=== PATIENT | female | born 1965 | race Caucasian/White ===

== ENCOUNTER → 2017-04-26 | Outpatient (CLI) | payer MEDICARE, BC | END | disposition home or self-care (01) | LOC: LABWHC1 10:10 | PROVIDERS: ATTEND Psychiatry & Neurology Neurology | DX: G35 Multiple sclerosis (principal) | CPT/HCPCS: 36415; 86480 ==

== ENCOUNTER → 2018-03-07 | Outpatient (CLI) | payer MEDICARE, BC ==
--- NOTE | 2018-03-07 09:05 | CT ---
EXAMINATION TYPE: CT urogram wo/w con DATE OF EXAM: 03/07/2018 COMPARISON: HISTORY: Microscopic hematuria, UTI CT DLP: 832.5 mGycm CONTRAST: Performed and without and with IV Contrast, patient injected with 100 mL of Isovue 300. CT Urography was performed with unenhanced followed by enhanced images of the kidneys, ureters and ur inary bladder. Delayed images were obtained. 3d reconstruction was perfromed at a separate work sta tion. FINDINGS: KIDNEYS/BLADDER: No hydronephrosis. No nephrolithiasis. No distinct renal mass. Mild wall thickeni ng anterior urinary bladder. LUNG BASES-: No visible nodule. No infiltrate. LIVER/GB: Cholecystectomy clips are in place. No space occupying hepatic lesion. Biliary tree is of n ormal caliber. PANCREAS: No inflammation. No distinct mass. SPLEEN: No splenic enlargement. No lesion seen. ADRENALS: No nodule. No thickening. BOWEL: Normal appendix. Normal bowel caliber. No inflammation. GENITAL ORGANS: No gross abnormality. LYMPH NODES: No greater than 1cm abdominal or pelvic lymph nodes are appreciated. AORTA: No significant abnormality. OSSEOUS STRUCTURES: No significant abnormality is seen. OTHER: No significant additional abnormality is seen. IMPRESSION: 1. Anterior urinary bladder wall thickening may reflect cystitis. Consider direct visualization if in dicated.
== END | disposition home or self-care (01) ==
LOC: RADCTMAIN 06:52
PROVIDERS: ATTEND Urology
DX: N32.89 Other specified disorders of bladder (principal); R31.21 Asymptomatic microscopic hematuria
CPT/HCPCS: 74178; 74400; Q9967

== ENCOUNTER → 2019-02-05 | Outpatient (CLI) | payer MEDICARE, BC ==
--- NOTE | 2019-02-05 08:33 | US ---
EXAMINATION TYPE: US abdomen complete DATE OF EXAM: 02/05/2019 COMPARISON: US CLINICAL HISTORY: R10.9 Abdominal Pain. Pt states epigastric pain, GB removed EXAM MEASUREMENTS: Liver Length: 12.6 cm CBD: 0.5 cm Spleen: 7.8 cm Right Kidney: 10.3 x 5.0 x 4.5 cm Left Kidney: 11.3 x 5.3 x 5.0 cm Pancreas: wnl, tail obscured by overlying bowel gas Liver: wnl Gallbladder: Surgically absent Evidence for sonographic Driscoll's sign: No CBD: wnl Spleen: wnl Right Kidney: ?Cortical thinning Left Kidney: wnl Upper IVC: wnl Abd Aorta: wnl, proximal portion gassed out IMPRESSION: 1. Postcholecystectomy
== END | disposition home or self-care (01) ==
LOC: RADUSWWP 07:51
PROVIDERS: ATTEND Family Medicine
DX: R10.9 Unspecified abdominal pain (principal); Z90.49 Acquired absence of other specified parts of digestive tract
CPT/HCPCS: 76700

== ENCOUNTER → 2019-06-30 | Outpatient (CLI) | payer MEDICARE, BC | END | disposition home or self-care (01) | LOC: LABWHC1 13:08 | PROVIDERS: ATTEND Psychiatry & Neurology Neurology | DX: D84.9 Immunodeficiency, unspecified (principal); Z79.899 Other long term (current) drug therapy | CPT/HCPCS: 36415; 83516 ==

== ENCOUNTER → 2020-02-04 | Outpatient (CLI) | payer MEDICARE, BC ==
--- NOTE | 2020-02-04 09:02 | US ---
EXAMINATION TYPE: US kidneys/renal and bladder DATE OF EXAM: 02/04/2020 COMPARISON: US 2019 CLINICAL HISTORY: R31.21 Asymptomatic microscopic hematuria. Microscopic hematuria, occasional lower back pain. EXAM MEASUREMENTS: Right Kidney: 10.0 x 4.9 x 4.4 cm Left Kidney: 10.5 x 5.0 x 5.2 cm Right Kidney: no hydronephrosis or masses seen Left Kidney: no hydronephrosis or masses seen Bladder: wnl Bilateral Jets seen: yes Urinary bladder is sonolucent. Posterior wall is normal. IMPRESSION: 1. Normal bilateral renal ultrasound
== END | disposition home or self-care (01) ==
LOC: RADUSWWP 07:46
PROVIDERS: ATTEND Urology
DX: R31.21 Asymptomatic microscopic hematuria (principal)
CPT/HCPCS: 76770

== ENCOUNTER → 2020-10-19 | Outpatient (CLI) | payer MEDICARE, BC ==
--- NOTE | 2020-10-19 18:43 | BD ---
EXAMINATION TYPE: Axial Bone Density DATE OF EXAM: 10/19/2020 COMPARISON: NONE CLINICAL HISTORY: Postmenopausal screening Height: 5 FT 2 IN Weight: 175 FRAX RISK QUESTIONS: Alcohol (3 or more units per day): NO Family History (Parent hip fracture): NO Glucocorticoids (More than 3mos): NO (Ex: prednisone, prednisolone, methylprednisolone, dexamethasone, and hydrocortisone). History of Fracture in Adulthood: NO Secondary Osteoporosis: 1. Type 1 Diabetes: NO 2. Hyperthyroidism: NO 3. Menopause before 45: YES 4. Malnutrition: NO 5. Chronic liver disease: NO Rheumatoid Arthritis: NO Current Tobacco Use: NO RISK FACTORS HISTORY OF: Family History of Osteoporosis: NO Active: YES Diet low in dairy products/other sources of calcium: NO Postmenopausal woman: PART HYST AROUND AGE 35 Take estrogen and/or progesterone medications: NONE Lost more than 2 inches in height since high school: NO Poor Health: PT HAS MS MEDICATIONS: Additional Medications: LEXAPRO, LISINOPRIL, Additional History: LETY CARPAL TUNNEL SURG APPROX 15 YEARS AGO EXAM MEASUREMENTS: Bone mineral densitometry was performed using the [employer] System. Bone mineral density as measured about the Lumbar spine is: ----- L1-L4(G/cm2): 1.271 T Score Values are as follows: ----- L2: 0.1 ----- L3: 1.1 ----- L4: 1.4 ----- L1-L4: 0.8 BASELINE Bone mineral density about the R hip (g/cm2): 0.829 Bone mineral density about the L hip (g/cm2): 0.928 T Score values are as follows: -----R Neck: -1.5 -----L Neck: -0.8 -----R Total: -0.7 -----L Total: 0.2 BASELINE IMPRESSION: Osteopenia (T Score between -2.5 and -1). There is slightly increased risk of fracture and the patient may be considered for treatment. Re-Screen 2-5 years. NOTE: T-SCORE=SD OF THE YOUNG ADULT MEAN.
--- NOTE | 2020-10-21 13:32 | MM ---
Reason for exam: screening (asymptomatic). Last mammogram was performed 9 years and 9 months ago. History: Family history of breast cancer in maternal aunt at age 40. Physical Findings: A clinical breast exam by your physician is recommended on an annual basis and results should be correlated with mammographic findings. MG 3D Screening Mammo W/Cad Bilateral CC and MLO view(s) were taken. Prior study comparison: January 08, 2011, CAD bilateral diagnostic mammogram. The breast tissue is heterogeneously dense. This may lower the sensitivity of mammography. There is no discrete abnormality. No significant changes when compared with prior studies. ASSESSMENT: Benign, BI-RAD 2 RECOMMENDATION: Routine screening mammogram of both breasts in 1 year.
== END | disposition home or self-care (01) ==
LOC: RADMAMWWP 08:00
PROVIDERS: ATTEND Family Medicine
DX: Z12.31 Encounter for screening mammogram for malignant neoplasm of breast (principal); Z78.0 Asymptomatic menopausal state; M85.80 Other specified disorders of bone density and structure, unspecified site
CPT/HCPCS: 77063; 77067; 77080

== ENCOUNTER 2020-11-02 07:28 | Day surgery (SDC) | payer MEDICARE, BC ==
[2020-10-31 14:31] VITALS: BMI 31.8
[~2020-11-02 07:28] MED LIST: LACTATED RINGERS 1,000 ML IV SCH; LIDOCAINE 1% (10MG/ML) FOR IV START INTRADERMA PRN
[2020-11-02 07:52] VITALS: RESP 16; TEMP 97
[2020-11-02] MEDS ORDERED: PROPOFOL 10 MG/ML 20 ML VIAL IV ONE (08:36)
--- NOTE | 2020-11-02 08:50 | P.PCN ---
Date of Procedure: 11/02/20 Procedure(s) Performed: BRIEF HISTORY: Patient is a 55-year-old pleasant female scheduled for an elective colonoscopy as a part of screening for colon cancer. PROCEDURE PERFORMED: Colonoscopy with snare polypectomy. PREOPERATIVE DIAGNOSIS: Screening for colon cancer. IV sedation per Anesthesia. PROCEDURE: After informed consent was obtained, the patient, was brought into the endoscopy unit. IV sedation was administered by Anesthesia under continuous monitoring. Digital rectal examination was normal. Initially the Olympus CF-160 flexible video colonoscope was then inserted in the rectum, gradually advanced into the cecum without any difficulty. Careful examination was performed as the scope was gradually being withdrawn. Ileocecal valve and the appendiceal orifice were visualized and appeared normal. Prep was excellent. Mucosa of the cecum, ascending colon, transverse colon, descending colon, appeared normal. The distal sigmoid colon there was a 1 cm polyp removed by snare polypectomy. Rest of the sigmoid colon, and rectum appeared normal. Retroflexion was performed in the rectum and 2 internal hemorrhoids were seen. The patient tolerated the procedure well. IMPRESSION: 1 cm distal sigmoid colon polyp status post polypectomy Small internal hemorrhoids RECOMMENDATIONS: Findings of this examination were discussed with the patient as well as her family. She was advised to follow with the biopsy results. If the biopsy shows an adenoma she can have a repeat colonoscopy in 3.
[2020-11-02 09:11] VITALS: BP 113/64; PULSE 76
== END 2020-11-02 09:48 | disposition home or self-care (01) ==
LOC: ORWHC2ENDO 07:28
PROVIDERS: ATTEND Internal Medicine Gastroenterology
DX: Z12.11 Encounter for screening for malignant neoplasm of colon (principal); D12.5 Benign neoplasm of sigmoid colon; K64.8 Other hemorrhoids
CPT/HCPCS: 88305; 45385; J2704

== ENCOUNTER → 2021-04-11 | Outpatient (CLI) | payer MEDICARE, BC ==
--- NOTE | 2021-04-11 11:48 | MM ---
Reason for exam: follow-up at short interval from prior study. Last mammogram was performed 6 months ago. History: Family history of breast cancer in maternal aunt at age 40. Physical Findings: Nurse did not find any significant physical abnormalities on exam. MG 3D Diag Mammo W/Cad RT CC and MLO view(s) were taken of the right breast. Prior study comparison: October 19, 2020, bilateral MG 3d screening mammo w/cad. The breast tissue is heterogeneously dense. This may lower the sensitivity of mammography. There is no discrete abnormality. Benign right axillary lymph nodes redemonstrated. These results were verbally communicated with the patient and result sheet given to the patient on 04/11/21. ASSESSMENT: Incomplete: need additional imaging evaluation, BI-RAD 0 RECOMMENDATION: Ultrasound of the right breast. (bloody nipple discharge)
--- NOTE | 2021-04-11 11:50 | USB ---
Reason for exam: additional evaluation requested from abnormal screening. History: Family history of breast cancer in maternal aunt at age 40. US Breast RT Right complete breast ultrasound includes all four quadrants, the retroareolar region and axilla. Finding demonstrates duct ectasia at the posterior nipple. These results were verbally communicated with the patient and result sheet given to the patient on 04/11/21. ASSESSMENT: Probably benign, BI-RAD 3 RECOMMENDATION: Surgical consultation of the right breast. Consider ductogram if spontaneous bloody nipple discharge persists. Manage patient on a clinical basis. Called Dr. Wolfe's office with mammographic findings and has scheduled an appointment for the patient for 05/19/21 at 10:[address] Haddad. PRELIMINARY REPORT CALLED AND FAXED TO DR. HADDAD ON 04/11/21. [facility]
== END | disposition home or self-care (01) ==
LOC: RADMAMWWP 06:55
PROVIDERS: ATTEND Family Medicine
DX: R92.2 Inconclusive mammogram (principal); N60.41 Mammary duct ectasia of right breast; Z80.3 Family history of malignant neoplasm of breast
CPT/HCPCS: 77065; 76641; G0279; 77061

== ENCOUNTER → 2021-05-19 | Outpatient (CLI) | payer MEDICARE, BC ==
[2021-05-19 10:32] VITALS: BP 131/79; PULSE 64; RESP 16; TEMP 98.3
--- NOTE | 2021-05-19 11:25 | P.GSHP ---
History of Present Illness H&P Date: 05/19/21 Chief Complaint: Bloody nipple discharge right breast Lilia is a 56-year-old white female who was seen in consultation for Dr. Wolfe regarding bloody nipple discharge from her right breast. She underwent a bilateral mammogram on 220 421 which was benign BIRADS 2. She then underwent a right breast mammogram [place] [id number] which did not show any discrete abnormality. This was followed by an ultrasound which revealed some duct ectasia. This has been for about 6 weeks. It appears to be from an isolated area. She notes the blood in her bra. It is spontaneous. She does have anything like that on the left side. She has intermittent burning sensation in the right breast. She has no history of any recent trauma or infection in the breast. She has never had any surgery on her breast. Caffeine:1 pop/day nicotine: none chocolate: occasional Family History: maternal aunt: breast mother: colon pre-cancer maternal aunt: thyroid cancer Hormonal History: menarche: 10 , age at first : 24, breast fed: yes menopause: hysterectomy at 34, left ovaries not for cancer BCP: about 3 years hormones: none Surgical History: Hysterectomy Right knee surgery 4 surgeries carpel tunnel gallbaldder D&C laproscopic exam Medical History: Multiple Sclerosis (treatment with lemtrada to wipe out immune system; through Dr. Austin office in remission) HTN Social History: smoke: stopped 40 years ago alcohol: seldom drugs: none - Constitutional Constitutional: Reports sweats - EENT Eyes: denies blurred vision, denies pain Ears: deny: decreased hearing, tinnitus Ears, nose, mouth and throat: Denies headache, Denies sore throat - Breasts Breasts: bilateral: as per HPI - Cardiovascular Cardiovascular: Denies chest pain, Denies shortness of breath - Respiratory Respiratory: Denies cough, Denies 7 - Gastrointestinal Gastrointestinal: Denies abdominal pain, Denies diarrhea, Denies nausea, Denies vomiting - Genitourinary (Female) Genitourinary: Denies dysuria, Denies hematuria - Menstruation Menstruation: Reports post hysterectomy - Musculoskeletal Comment: multiple sclerosis difficulty with walking Musculoskeletal: Denies myalgias - Integumentary Integumentary: Denies pruritus, Denies rash - Neurological Comment: multiple sclerosis - Psychiatric Psychiatric: Denies anxiety, Denies depression - Endocrine Endocrine: Denies fatigue, Denies weight change - Hematologic/Lymphatic Comment: none - Allergic/Immunologic Allergic/Immunologic: Reports as per HPI Past Medical History Past Medical History: Hypertension History of Any Multi-Drug Resistant Organisms: None Reported Past Surgical History: Section, Cholecystectomy, Hysterectomy, Orthopedic Surgery Additional Past Surgical History / Comment(s): rt knee sx and scope. C-SEC X 3. BILAT CTR Past Anesthesia/Blood Transfusion Reactions: Motion Sickness Past Psychological History: No Psychological Hx Reported Smoking Status: Former smoker Past Alcohol Use History: Rare Additional Past Alcohol Use History / Comment(s): SMOKED FOR A FEW YEARS A TEEN Past Drug Use History: None Reported - Past Family History Mother Family Medical History: No Reported History Medications and Allergies Home Medications Medication Instructions Recorded Confirmed Type lisinopriL [Zestril] 2.5 mg PO DAILY 10/31/20 05/19/21 History Ascorbic Acid [Vitamin C] 500 mg PO DAILY 05/19/21 05/19/21 History Biotin [Biotin Disolve] 5,000 mcg PO DAILY 05/19/21 05/19/21 History Calcium Carbonate [Calcium] 600 mg PO DAILY 05/19/21 05/19/21 History Cholecalciferol [Vitamin D3 (25 25 mcg PO DAILY 05/19/21 05/19/21 History Mcg = 1000 Iu)] Desvenlafaxine Succinate [Pristiq 25 mg PO DAILY 05/19/21 05/19/21 History ER] Multivitamin [Multivitamins Adult 1 each PO DAILY 05/19/21 05/19/21 History Gummies] Zinc 50 mg PO DAILY 05/19/21 05/19/21 History Allergies Allergy/AdvReac Type Severity Reaction Status Date / Time morphine AdvReac Hallucinati Verified 05/19/21 10:26 ons Surgical - Exam Vital Signs Temp Pulse Resp BP Pulse Ox 98.3 F 64 16 131/79 100 05/19/21 10:26 05/19/21 10:26 05/19/21 10:26 05/19/21 10:05/19/21 10:26 BMI 32.7 - General no distress - Eyes normal ocular movement - Respiratory normal respiratory effort, clear to auscultation - Cardiovascular Rhythm: regular Heart Sounds: normal: S1, S2 - Integumentary normal turgor - Neurologic no disoriented, no combative - Musculoskeletal normal gait - Psychiatric oriented to time, oriented to person, oriented to place, speech is normal, memory intact Breast Exam: BRA: 38B Inspection: Bilateral grade 3 ptosis Palpation: Right breast: Multi-positional exam fibrocystic changes, no dominant masses or nodules of concern, with palpation at the 11 o'clock position there is nipple discharge which is brown in color, guaiac was performed of this and it is blotted Right axilla: No adenopathy of concern Left breast: Multi-positional exam fibrocystic changes, no dominant masses or nodules of concern, no nipple discharge of concern Left axilla: No adenopathy of concern Results Mammogram and ultrasound reviewed with Dr. Verdugo Assessment and Plan Assessment: Impression: 1. Bloody nipple discharge right breast 2. Fibrocystic breast changes 3. History of multiple sclerosis in remission 4. Borderline hypertension Plan: 1. Ultrasound-guided needle localization of duct ectasia in the right breast with duct excision of the 11:00 area Risk and benefits of the procedure were discussed with the patient. Risks include but are not limited to bleeding, infection, reaction to the anesthetic. She may have some inversion of the nipple and decreased sensation of the nipple areolar complex. Alternatives such as galactogram, MRI, or watchful waiting were also discussed and after discussion it has been decided on duct exploration. CC: Dr. Wolfe, Dr. Vasquez
== END ==
LOC: WWCWWP 10:06
PROVIDERS: ATTEND Surgery
DX: N64.52 Nipple discharge (principal); N60.11 Diffuse cystic mastopathy of right breast; G35 Multiple sclerosis; I10 Essential (primary) hypertension; Z87.891 Personal history of nicotine dependence; Z88.5 Allergy status to narcotic agent

== ENCOUNTER 2021-06-06 10:11 | Day surgery (SDC) | payer MEDICARE, BC ==
[2021-06-05 08:41] VITALS: BMI 32.3
[~2021-06-06 10:11] MED LIST changes: +HEPARIN SODIUM,PORCINE/PF 5,000 UNIT/0.5 ML SYRINGE SQ PRN; +ONDANSETRON 4 MG/2 ML VIAL IVP ONE; +Pre Op ABX Message 1 EACH MISC MISCELLANE ONE; +fentaNYL (PF) 50 MCG/ML 2 ML AMP IV PRN
[2021-06-06 11:09] VITALS: RESP 16; TEMP 98
[2021-06-06] MEDS ORDERED: ALPRAZolam 0.5 MG TAB ONE (11:12)
[2021-06-06] MEDS ORDERED: ALPRAZolam 0.5 MG TAB PO ONE (11:21)
[2021-06-06] MEDS ORDERED: LIDOCAINE 1% INJ 10MG/ML (20 ML MDV) SQ ONE ×3 (11:45→13:07)
[2021-06-06] MEDS ORDERED: DEXAMETHASONE SOD PHOSPHATE 4 MG/ML 1 ML VIAL IVP ONE (12:13)
[2021-06-06] MEDS ORDERED: ROCURONIUM 10 MG/ML (5 ML VIAL) IV ONE (12:25)
[2021-06-06] MEDS ORDERED: LIDOCAINE 1% INJ 10MG/ML (20 ML MDV) ONE (12:25)
[2021-06-06] MEDS ORDERED: fentaNYL (PF) 50 MCG/ML 2 ML AMP ONE (12:25)
[2021-06-06] MEDS ORDERED: PHENYLEPHRINE-0.9% NACL SYG 1,000 MCG/10 ML SYRINGE ONE (12:25)
[2021-06-06] MEDS ORDERED: NEOSTIGMINE 1 MG/ML 10 ML VIAL ONE (12:25)
[2021-06-06] MEDS ORDERED: PROPOFOL 10 MG/ML 20 ML VIAL IV ONE (12:25)
[2021-06-06] MEDS ORDERED: GLYCOPYRROLATE 0.2 MG/ML 2 ML VIAL ONE (12:25)
[2021-06-06] MEDS ORDERED: MIDAZOLAM 2 MG/2 ML VIAL ONE (12:25)
--- NOTE | 2021-06-06 13:19 | P.OP ---
Date of Procedure: 06/06/21 Preoperative Diagnosis: bloody nipple discharge right breast Postoperative Diagnosis: Same Procedure(s) Performed: Duct exploration right breast after needle localization Anesthesia: ROLA Surgeon: Aditi Haddad Estimated Blood Loss (ml): 5 IV fluids (ml): 700 Pathology: other (breast tissue) Disposition: same day Indications for Procedure: Right breast bloody nipple discharge Operative Findings: Dense breast tissue Description of Procedure: The patient is a 56-year-old white female who developed bloody nipple discharge from her right breast. Ultrasound revealed what appeared to be duct ectasia from the area of the duct that the discharge was coming from. Ultrasound localization of the abnormal duct was performed preoperatively. The breast patient was brought to the operative suite. Following induction of anesthesia the right breast was prepped and draped in a sterile fashion. A circumareolar incision was made and carried down to the shaft of the needle. Surrounding tissue was excised. This was excised under the nipple complex. We then evaluated to assure that hemostasis was attained. Titanium clips were placed. Specimen was painted for orientation. Radiograph revealed that the needle had been removed in continuity. After this occurred the deep tissues were closed using 3-0 Vicryl suture. The skin was closed using 4-0 Monocryl. Steri-Strips were applied. The patient tolerated the procedure in stable condition. All instrument and sponge counts were correct at the end of the case. 10CC of 1% plaine lidoceine local anesthetic was injected at the end of the case.
--- NOTE | 2021-06-06 13:21 | P.DS ---
Providers Attending physician: Aditi Haddad Primary care physician: Micheline Wolfe Plan - Discharge Summary Discharge Rx Participant: No New Discharge Prescriptions: No Action lisinopriL [Zestril] 2.5 mg PO DAILY Cholecalciferol [Vitamin D3 (25 Mcg = 1000 Iu)] 25 mcg PO DAILY Ascorbic Acid [Vitamin C] 500 mg PO DAILY Desvenlafaxine Succinate [Pristiq ER] 25 mg PO DAILY Biotin [Biotin Disolve] 5,000 mcg PO DAILY Zinc 50 mg PO DAILY Multivitamin [Multivitamins Adult Gummies] 1 each PO DAILY Calcium Carbonate [Calcium] 600 mg PO DAILY Discharge Medication List lisinopriL [Zestril] 2.5 mg PO DAILY 10/31/20 [History] Ascorbic Acid [Vitamin C] 500 mg PO DAILY 05/19/21 [History] Biotin [Biotin Disolve] 5,000 mcg PO DAILY 05/19/21 [History] Calcium Carbonate [Calcium] 600 mg PO DAILY 05/19/21 [History] Cholecalciferol [Vitamin D3 (25 Mcg = 1000 Iu)] 25 mcg PO DAILY 05/19/21 [History] Desvenlafaxine Succinate [Pristiq ER] 25 mg PO DAILY 05/19/21 [History] Multivitamin [Multivitamins Adult Gummies] 1 each PO DAILY 05/19/21 [History] Zinc 50 mg PO DAILY 05/19/21 [History] Follow up Appointment(s)/Referral(s): Aditi Haddad MD [STAFF PHYSICIAN] - 1 Week Activity/Diet/Wound Care/Special Instructions: do not drive today dp no drive if taking narcotic pain medicine wear bra at all times may shower after 48 hours Discharge Disposition: HOME SELF-CARE
--- NOTE | 2021-06-06 13:32 | USB ---
EXAM: Needle localization with wire placement. CLINICAL HISTORY: Right nipple discharge. Prominent right duct. Abnormal ultrasound TECHNIQUE: Needle localization with wire placement and surgical excision of area of concern in the right breast. COMPARISON: Prior ultrasound April 11, 2021 FINDINGS: The procedure of needle localization with wire placement and than surgical excision was explained to the patient. Benefits, alternatives, and risks were discussed. An informed consent was then obtained. I was asked to localize prominent duct subareolar region on ultrasound just above the nipple for ordering surgeon. Preprocedure ultrasound redemonstrates prominent duct at this level. The overlying skin was prepped and draped in usual sterile fashion. Lidocaine is used as anesthetic into the skin and subcutaneous tissue up to the level of area of concern. A 5 cm needle was used. It was placed via ultrasound alone guidance. After transversing the duct, wire was placed and the needle was withdrawn. The wire was fixed to patient's skin. The patient tolerated the procedure well without any immediate complication. The patient was kept in the radiology department for short stay after the procedure and then taken to surgery for surgical excision. Intact wire is identified in specimen mammogram. The patient was kept in hospital for short stay after the procedure and then discharged home in stable condition. IMPRESSION: Successful, uncomplicated needle localization with wire placement and surgical excision of prominent duct in the right breast, full pathology results to follow. Pathology Results: Benign RIGHT BREAST, EXCISION/LUMPECTOMY: Mammary duct ectasia with fibrocystic change having apocrine metaplasia, columnar cell change/hyperplasia with microcalcification, sclerosing adenosis, and usual ductal hyperplasia. Negative for diagnostic in situ or invasive carcinoma and all margins benign. Recommendation Follow up ultrasound of the right breast in 6 months. PERNELL
[2021-06-06 15:25] VITALS: BP 108/59; PULSE 78
== END 2021-06-06 15:32 | disposition home or self-care (01) ==
LOC: OR 10:11
PROVIDERS: ATTEND Surgery
DX: N60.11 Diffuse cystic mastopathy of right breast (principal); N60.41 Mammary duct ectasia of right breast; N62 Hypertrophy of breast; R92.0 Mammographic microcalcification found on diagnostic imaging of breast; I10 Essential (primary) hypertension; F32.9 Major depressive disorder, single episode, unspecified; Z80.8 Family history of malignant neoplasm of other organs or systems; Z90.710 Acquired absence of both cervix and uterus; Z98.890 Other specified postprocedural states; G35 Multiple sclerosis; Z87.891 Personal history of nicotine dependence; Z98.891 History of uterine scar from previous surgery; Z79.899 Other long term (current) drug therapy; Z88.5 Allergy status to narcotic agent
CPT/HCPCS: 88307; 76098; 19285; 19110; J2250; J1100; J2710; J2405; J2001; J3010; J2370; J2704; J1644

== ENCOUNTER → 2021-06-15 | Outpatient (CLI) | payer MEDICARE, BC ==
[2021-06-15 11:05] VITALS: BP 117/74; PULSE 80; RESP 16; TEMP 98.3
--- NOTE | 2021-06-15 11:13 | P.PN ---
Progress Note - Text Progress Note Date: 06/15/21 Lilia is status post right breast lumpectomy on 06-06-21. Her pathology was benign, mammary duct ectasia. She has had no complications related to the procedure. Examination: Lungs: Clear Heart: Regular rate and rhythm Incision: Clean and dry Impression: Status post benign right breast duct exploration Plan: Right breast mammogram in 6 months with physician exam at that time Cc: Dr. Wolfe
== END ==
LOC: WWCWWP 10:44
PROVIDERS: ATTEND Surgery
DX: N60.41 Mammary duct ectasia of right breast (principal); Z98.890 Other specified postprocedural states; Z88.5 Allergy status to narcotic agent

== ENCOUNTER → 2021-12-05 | Outpatient (CLI) | payer MEDICARE, BC ==
--- NOTE | 2021-12-05 09:44 | MM ---
Reason for exam: follow-up at short interval from prior study. Last mammogram was performed 8 months ago. History: Family history of breast cancer in maternal aunt at age 40. Benign US breast localization RT of the right breast, June 06, 2021. Lumpectomy of the right breast, June 06, 2021. Physical Findings: A clinical breast exam by your physician is recommended on an annual basis and results should be correlated with mammographic findings. MG 3D Diag Mammo W/Cad LETY Bilateral CC and MLO view(s) were taken. Technologist: Anuja Sanchez, RT (R)(M) Prior study comparison: April 11, 2021, right breast MG 3d diag mammo w/cad RT. October 19, 2020, bilateral MG 3d screening mammo w/cad. The breast tissue is heterogeneously dense. This may lower the sensitivity of mammography. There is chronic nodularity bilaterally. Interval post resection changes on the right. Upper outer quadrant focal asymmetry right breast is more defined. It does note persist on spot MLO. Partially disperses on spot CC. Ultrasound recommended. Otherwise, no discrete abnormality. Results were given to the patient verbally at the time of the exam. ASSESSMENT: Incomplete: need additional imaging evaluation, BI-RAD 0 RECOMMENDATION: Ultrasound of the right breast. (lateral half)
--- NOTE | 2021-12-05 09:46 | USB ---
Reason for exam: additional evaluation requested from abnormal screening. History: Family history of breast cancer in maternal aunt at age 40. Benign US breast localization RT of the right breast, June 06, 2021. Lumpectomy of the right breast, June 06, 2021. Physical Findings: A clinical breast exam by your physician is recommended on an annual basis and results should be correlated with mammographic findings. US Breast Limited RT Right limited breast ultrasound including focal area of concern, retroareolar and axilla demonstrates a 0.9 x 0.5 x 0.6cm lesion at 10 o'clock, 7cm from nipple. This seems to be a cyst cluster embedded in a longer patch of dense tissue, possible mammographic correlate. 6 month follow up. Scanned 6-12 o'clock. Results were given to the patient verbally at the time of the exam. ASSESSMENT: Probably benign, BI-RAD 3 RECOMMENDATION: Follow-up diagnostic mammogram of the right breast in 6 months.
== END | disposition home or self-care (01) ==
LOC: RADMAMWWP 08:19
PROVIDERS: ATTEND Family Medicine
DX: R92.8 Other abnormal and inconclusive findings on diagnostic imaging of breast (principal); N64.89 Other specified disorders of breast; Z80.3 Family history of malignant neoplasm of breast
CPT/HCPCS: 77066; 76642; G0279; 77062

== ENCOUNTER → 2021-12-08 | Outpatient (CLI) | payer MEDICARE, BC ==
[2021-12-08 08:58] VITALS: BP 160/88; PULSE 76; RESP 18; TEMP 97.8
--- NOTE | 2021-12-08 09:13 | P.PN ---
Subjective Progress Note Date: 12/08/21 Principal diagnosis: duct ectasia right breast Lilia is a 56-year-old white female who was seen in consultation for Dr. Wolfe regarding bloody nipple discharge from her right breast. She underwent a bilateral mammogram on which was benign BIRADS 2. She then underwent [place] [id number] which did not show any discrete abnormality. This was followed by an ultrasound which revealed some duct ectasia. This had been for about 6 weeks. It appeared to be from an isolated area. She noted the blood in her bra. It was spontaneous. She did not have anything like that on the left side. She had intermittent burning sensation in the right breast. She had no history of any recent trauma or infection in the breast. On 06-06-21 she underwent a right breast duct exploration. This revealed benign mammary duct ectasia. The patient underwent a bilateral mammogram on . This resulted in an ultrasound of the right breast. This was repeated on the same day and the ultrasound revealed a 0.9 x 0.6 cm lesion at 10:00. This seemed to be a cystic cluster embedded in the longer patch of dense tissue. Six-month follow-up diagnostic mammogram of the right breast in 6 months was recommended. She has not noted any lumps masses or nudules in either breast of concern. She does not have any more nipple discharge on either side. The bloody nipple discharge on the right side as stopped since her right breast duct exploration. Caffeine:1 pop/day nicotine: none chocolate: occasional Family History: maternal aunt: breast mother: colon pre-cancer maternal aunt: thyroid cancer Hormonal History: menarche: 10 , age at first : 24, breast fed: yes menopause: hysterectomy at 34, left ovaries not for cancer BCP: about 3 years hormones: none Surgical History: Hysterectomy Right knee surgery 4 surgeries carpel tunnel gallbaldder D&C laproscopic exam right breast duct exploration Medical History: Multiple Sclerosis (treatment with lemtrada to wipe out immune system; through Dr. Austin office in remission) HTN Social History: smoke: stopped 40 years ago alcohol: seldom drugs: none - Constitutional Constitutional: Reports sweats - EENT Eyes: denies blurred vision, denies pain Ears: deny: decreased hearing, tinnitus Ears, nose, mouth and throat: Denies headache, Denies sore throat - Breasts Breasts: bilateral: as per HPI - Cardiovascular Cardiovascular: Denies chest pain, Denies shortness of breath - Respiratory Respiratory: Denies cough - Gastrointestinal Gastrointestinal: Denies abdominal pain, Denies diarrhea, Denies nausea, Denies vomiting - Genitourinary (Female) Genitourinary: Denies dysuria, Denies hematuria - Menstruation Menstruation: Reports post hysterectomy - Musculoskeletal Comment: multiple sclerosis difficulty with walking Musculoskeletal: Denies myalgias - Integumentary Integumentary: Denies pruritus, Denies rash - Neurological Comment: multiple sclerosis - Psychiatric Psychiatric: Denies anxiety, Denies depression - Endocrine Endocrine: Denies fatigue, Denies weight change - Hematologic/Lymphatic Comment: none - Allergic/Immunologic Allergic/Immunologic: Reports as per HPI Objective - Exam BMI 31.3 - Constitutional General appearance: Present: cooperative - EENT Eyes: Present: EOMI ENT: Present: hearing grossly normal - Neck Neck: Present: normal ROM - Respiratory Respiratory: bilateral: CTA - Cardiovascular Rhythm: regular Heart sounds: normal: S1, S2 - Gastrointestinal General gastrointestinal: Present: soft - Integumentary Integumentary: Present: normal turgor - Musculoskeletal Musculoskeletal: Present: gait normal - Psychiatric Psychiatric: Present: A&O x's 3, appropriate affect, intact judgment & insight - Additional findings Additional findings: Breast Exam: BRA: 38C inspection: bilateral grade 2 ptosis palpation: right breast: Multiple positional exam fibrocystic changes no dominant masses or nodules of concern, well-healed scar from prior surgery Right axilla: No adenopathy of concern Left breast: Multi-positional exam fibrocystic changes no dominant masses or nodules of concern Left axilla: No adenopathy of concern Assessment and Plan Assessment: Impression: Multiple Sclerosis (treatment with lemtrada to wipe out immune system; through Dr. Austin office in remission) HTN Duct ectasia Recent bilateral mammogram and right breast ultrasound recommend repeat right breast mammogram and ultrasound in 6 months The bloody nipple discharge from the right breast has stopped since her right breast duct exploration Plan: Right breast mammogram and ultrasound in 6 months with physician exam at that time Patient to follow up sooner any questions or concerns CC: DR. Wolfe
== END ==
LOC: WWCWWP 08:44
PROVIDERS: ATTEND Surgery
DX: N60.41 Mammary duct ectasia of right breast (principal); G35 Multiple sclerosis; I10 Essential (primary) hypertension; Z87.891 Personal history of nicotine dependence; Z88.5 Allergy status to narcotic agent

== ENCOUNTER 2022-05-28 11:07 | Observation (INO) | payer MEDICARE, BC ==
[2022-05-28] MEDS ORDERED: SODIUM CHLORIDE 0.9% 500 ML 500 ML IV STA (11:25)
[2022-05-28 12:07] LABS: Basophils # (A) 0.1 k/uL (0-0.2); Basophils % (A) 1 %; Eosinophils # (A) 0.1 k/uL (0-0.7); Eosinophils % (A) 1 %; HCT 41.4 % (34.0-46.0); Lymphocytes # (A) 1.6 k/uL (1.0-4.8); Lymphocytes % (A) 15 %; MCH 31.9 pg (25.0-35.0); MCHC 33.8 g/dL (31.0-37.0); MCV 94.4 fL (80.0-100.0); Mean Platelet Volume 7.9; Monocytes # (A) 0.5 k/uL (0-1.0); Monocytes % (A) 5 %; Neutrophils # (A) 7.8 k/uL (1.3-7.7); Neutrophils % (A) 75 %; Platelet Count 279 k/uL (150-450); RBC 4.38 m/uL (3.80-5.40); WBC 10.4 k/uL (3.8-10.6)
[2022-05-28 12:20] LABS: INR 0.9 (<1.2); Partial Thromboplastin Time 23.7 sec (22.0-30.0); Prothrombin Time 9.7 sec (9.0-12.0)
--- NOTE | 2022-05-28 12:23 | ED ---
General Adult HPI - General Chief complaint: Dizziness Stated complaint: High BP,lightheaded Time Seen by Provider: 05/28/22 11:22 Source: patient, RN notes reviewed Mode of arrival: ambulatory Limitations: no limitations - History of Present Illness Initial comments: 57-year-old female presents emergency Department chief complaint episode of lightheadedness, chest pressure, shortness of breath. Patient states that she was taking a shower states that she thought she cannot get deep breath and felt some pressure in her chest and felt like she was going to pass out. She did sit down and symptoms passed. She states she still does not feel well. Patient states that she does not have a history of cardiac disease no prior lung disease denies any recent traveling no history DVT or PE. States that she felt nauseated during her episode of symptoms. - Related Data Home Medications Medication Instructions Recorded Confirmed Ascorbic Acid [Vitamin C] 500 mg PO DAILY 05/19/21 05/28/22 Biotin [Biotin Disolve] 5,000 mcg PO DAILY 05/19/21 05/28/22 Cholecalciferol [Vitamin D3 (25 25 mcg PO DAILY 05/19/21 05/28/22 Mcg = 1000 Iu)] Bumetanide [Bumex] 1 mg PO DAILY PRN 05/28/22 05/28/22 Desvenlafaxine Succinate [Pristiq 50 mg PO DAILY 05/28/22 05/28/22 ER] L.acidoph,Paracasei, B.lactis 1 cap PO DAILY 05/28/22 05/28/22 [Probiotic] Loratadine [Claritin] 10 mg PO DAILY 05/28/22 05/28/22 Potassium Chloride ER [K-Dur 20] 20 meq PO DAILY PRN 05/28/22 05/28/22 Allergies Allergy/AdvReac Type Severity Reaction Status Date / Time morphine AdvReac Hallucinati Verified 05/28/22 13:15 ons Review of Systems ROS Statement: Those systems with pertinent positive or pertinent negative responses have been documented in the HPI. ROS Other: All systems not noted in ROS Statement are negative. Past Medical History Past Medical History: Neurologic Disorder Additional Past Medical History / Comment(s): "family hx of hypertension" pt states "borderline". hx febrile seizures. Multiple Sclerosis History of Any Multi-Drug Resistant Organisms: None Reported Past Surgical History: Section, Cholecystectomy, Hysterectomy, Orthopedic Surgery Additional Past Surgical History / Comment(s): rt knee sx and scope. C-SEC X 3. BILAT CTR Past Anesthesia/Blood Transfusion Reactions: Motion Sickness Past Psychological History: No Psychological Hx Reported Smoking Status: Former smoker Past Alcohol Use History: Rare Past Drug Use History: None Reported - Past Family History Mother Family Medical History: No Reported History General Exam Limitations: no limitations General appearance: alert, in no apparent distress Head exam: Present: atraumatic, normocephalic, normal inspection Eye exam: Present: normal appearance, PERRL, EOMI. Absent: scleral icterus, conjunctival injection, periorbital swelling ENT exam: Present: normal exam, mucous membranes moist Neck exam: Present: normal inspection, full ROM. Absent: tenderness, meningismus, lymphadenopathy Respiratory exam: Present: normal lung sounds bilaterally. Absent: respiratory distress, wheezes, rales, rhonchi, stridor Cardiovascular Exam: Present: regular rate, normal rhythm, normal heart sounds. Absent: systolic murmur, diastolic murmur, rubs, gallop, clicks GI/Abdominal exam: Present: soft, normal bowel sounds. Absent: distended, tenderness, guarding, rebound, rigid Course Vital Signs 05/28/22 05/28/22 11:18 13:00 Temperature 97.7 F Pulse Rate 88 80 Respiratory 20 16 Rate Blood Pressure 173/82 155/90 O2 Sat by Pulse 99 94 L Oximetry Medical Decision Making - Medical Decision Making 57-year-old female presents emergency department for the hypertension and near- syncope chest pressure shortness of breath. Patient's was working was negative patient be admitted for cardiac rule out - Lab Data Result diagrams: 05/28/22 11:57 05/28/22 11:57 Lab Results 05/28/22 05/28/22 05/28/22 Range/Units 11:57 11:57 11:57 WBC 10.4 (3.8-10.6) k/uL RBC 4.38 (3.80-5.40) m/uL Hgb 14.0 (11.4-16.0) gm/dL Hct 41.4 (34.0-46.0) % MCV 94.4 (80.0-100.0) fL MCH 31.9 (25.0-35.0) pg MCHC 33.8 (31.0-37.0) g/dL RDW 13.0 (11.5-15.5) % Plt Count 279 (150-450) k/uL MPV 7.9 Neutrophils % 75 % Lymphocytes % 15 % Monocytes % 5 % Eosinophils % 1 % Basophils % 1 % Neutrophils # 7.8 H (1.3-7.7) k/uL Lymphocytes # 1.6 (1.0-4.8) k/uL Monocytes # 0.5 (0-1.0) k/uL Eosinophils # 0.1 (0-0.7) k/uL Basophils # 0.1 (0-0.2) k/uL PT 9.7 (9.0-12.0) sec INR 0.9 (<1.2) APTT 23.7 (22.0-30.0) sec D-Dimer 0.30 (<0.60) mg/L FEU Sodium 142 (137-145) mmol/L Potassium 4.4 (3.5-5.1) mmol/L Chloride 100 (98-107) mmol/L Carbon Dioxide 28 (22-30) mmol/L Anion Gap 14 mmol/L BUN 17 (7-17) mg/dL Creatinine 0.89 (0.52-1.04) mg/dL Est GFR (CKD-EPI)AfAm 83 (>60 ml/min/1.73 sqM) Est GFR (CKD-EPI)NonAf 72 (>60 ml/min/1.73 sqM) Glucose 106 H (74-99) mg/dL Calcium 10.6 H (8.4-10.2) mg/dL Total Bilirubin 1.1 (0.2-1.3) mg/dL AST 29 (14-36) U/L ALT 25 (4-34) U/L Alkaline Phosphatase 96 (38-126) U/L Troponin I (0.000-0.034) ng/mL Total Protein 7.7 (6.3-8.2) g/dL Albumin 4.9 (3.5-5.0) g/dL 05/28/22 Range/Units 11:57 WBC (3.8-10.6) k/uL RBC (3.80-5.40) m/uL Hgb (11.4-16.0) gm/dL Hct (34.0-46.0) % MCV (80.0-100.0) fL MCH (25.0-35.0) pg MCHC (31.0-37.0) g/dL RDW (11.5-15.5) % Plt Count (150-450) k/uL MPV Neutrophils % % Lymphocytes % % Monocytes % % Eosinophils % % Basophils % % Neutrophils # (1.3-7.7) k/uL Lymphocytes # (1.0-4.8) k/uL Monocytes # (0-1.0) k/uL Eosinophils # (0-0.7) k/uL Basophils # (0-0.2) k/uL PT (9.0-12.0) sec INR (<1.2) APTT (22.0-30.0) sec D-Dimer (<0.60) mg/L FEU Sodium (137-145) mmol/L Potassium (3.5-5.1) mmol/L Chloride (98-107) mmol/L Carbon Dioxide (22-30) mmol/L Anion Gap mmol/L BUN (7-17) mg/dL Creatinine (0.52-1.04) mg/dL Est GFR (CKD-EPI)AfAm (>60 ml/min/1.73 sqM) Est GFR (CKD-EPI)NonAf (>60 ml/min/1.73 sqM) Glucose (74-99) mg/dL Calcium (8.4-10.2) mg/dL Total Bilirubin (0.2-1.3) mg/dL AST (14-36) U/L ALT (4-34) U/L Alkaline Phosphatase (38-126) U/L Troponin I <0.012 (0.000-0.034) ng/mL Total Protein (6.3-8.2) g/dL Albumin (3.5-5.0) g/dL Disposition Clinical Impression: Near syncope, Anginal equivalent, Hypertension Disposition: ADMITTED IP TO THIS HOSP Condition: Fair Referrals: Micheline Wolfe MD [Primary Care Provider] - 1-2 days Time of Disposition: 13:34
[2022-05-28 12:25] LABS: Albumin 4.9 g/dL (3.5-5.0); Calcium 10.6 mg/dL (8.4-10.2); Potassium 4.4 mmol/L (3.5-5.1); Total Bilirubin 1.1 mg/dL (0.2-1.3); Total Protein 7.7 g/dL (6.3-8.2)
--- NOTE | 2022-05-28 12:40 | XR ---
EXAMINATION TYPE: XR chest 2V DATE OF EXAM: 05/28/2022 12:22 PM COMPARISON: None TECHNIQUE: XR chest 2V Frontal and lateral views of the chest. CLINICAL INDICATION:Female, 57 years old with history of sob; FINDINGS: Lungs/Pleura: There is no evidence of pleural effusion, focal consolidation, or pneumothorax. Pulmonary vascularity: Unremarkable. Heart/mediastinum: Cardiomediastinal silhouette is unremarkable. Musculoskeletal: No acute osseous pathology. Other findings: Cholecystectomy clips identified in the upper abdomen. IMPRESSION: No acute cardiopulmonary disease/process.
[2022-05-28] MEDS ORDERED: ASPIRIN 81 MG PO STA (13:34)
[2022-05-28] MEDS ORDERED: NITROGLYCERIN SL TABS 0.4 MG TAB SUBLINGUAL PRN (13:34)
--- NOTE | 2022-05-28 14:19 | P.CRDCN ---
History of Present Illness History of present illness: This is a 57 year old female with a past medical history of hypertension (no longer on antihypertensives for about 1.5 years), Multiple sclerosis with last treatment in 2018, family history of coronary artery disease. She does not follow with a manager respiratory. We have been consulted for near syncope. Patient presents to the emergency department after a near syncopal episode. She states this morning she was taking a shower, she had acute onset of lightheadedness, states its difficult to describe what she felt she just felt "weird/off". She states she began to have a panic feeling, some heaviness in her chest which she felt was more anxiety. She sat down on the bench in her shower, continued to have these symptoms. She states she walked out of the shower, laid down and continued to feel "strange". She had associated diaphoresis, some mild shortness of breath and nausea. She did not lose consciousness. She called her PCP and obtained an appointment at 1pm. She states her symptoms did not improve and she presented to the ER for further evaluation. This episode lasted about 30 elda robert. She took her BP and it was 140s/80s. She states she progressively improved. Currently she denies any chest pain, shortness of breath, lightheadedness, dizziness. She is overall feeling well. She denies any abdominal pain, vomiting, fever, cough, chills. She did eat breakfast prior to her shower. She denies taking a warm/hot shower. This has never happened to her before. She denies any history of CAD, PA, Stroke, Diabetes, Seizures or dyslipidemia. Family history includes father had CABG in 60s, brother had PA in his 40s. She denies any alcohol use or illicit drug use. DIAGNOSTICS * EKG reveals sinus rhythm, heart rate 78, nonspecific ST and T wave abnormalities. No prior EKG to compare * Telemetry tracings at bedside, patient in sinus rhythm * Chest xray no acute cardiopulmonary process * Laboratory reviewed, CBC unremarkable, d-dimer negative, troponin negative x 1, sodium 142, potassium 4.4, BUN 17, serum creatinine 0.8 * Current home medications include vitamin C, biotin, PRN bumex, vitamin D, probiotic, Claritin, potassium chloride PRN REVIEW OF SYSTEMS At the time of my exam: Patient symptoms have resolved CONSTITUTIONAL: Denies fever or chills. CARDIOVASCULAR: Denies chest pain, shortness of breath, orthopnea, PND or palpitations. RESPIRATORY: Denies cough. GASTROINTESTINAL: Denies abdominal pain, diarrhea, constipation, nausea or vomiting. MUSCULOSKELETAL: Denies myalgias. NEUROLOGIC: Denies numbness, tingling, headache or weakness. ENDOCRINE: Denies fatigue, weight change, polydipsia or polyurina. GENITOURINARY: Denies burning, hematuria or urgency with micturation. HEMATOLOGIC: Denies bleeding. PHYSICAL EXAMINATION Blood pressure 155/90, heart rate 80, afebrile, oxygen saturation 99% on room air CONSTITUTIONAL: No apparent distress. HEENT: Head is normocephalic. Pupils are equal, round. Sclerae anicteric. Mucous membranes of the mouth are moist. No JVD. No carotid bruit. CHEST EXAMINATION: Lungs are clear to auscultation. No chest wall tenderness is noted on palpation or with deep breathing. HEART EXAMINATION: Regular rate and rhythm. S1, S2 heard. No murmurs, gallops or rub. ABDOMEN: Soft, nontender. Positive bowel sounds. EXTREMITIES: 2+ peripheral pulses, no lower extremity edema and no calf tenderness. NEUROLOGIC EXAMINATION: Patient is awake, alert and oriented x3. ASSESSMENT Near syncopal episode, possibly orthostatic/vasovagal History of hypertension Multiple sclerosis Family history of coronary artery disease PLAN Obtain orthostatic vital signs Monitor on telemetry Obtain 2D echocardiogram and doppler study to assess cardiac structure and function. Further recommendations based on clinical course Nurse practitioner note has been reviewed by physician. Signing provider agrees with the documented findings, assessment, and plan of care. Past Medical History Past Medical History: Neurologic Disorder Additional Past Medical History / Comment(s): "family hx of hypertension" pt states "borderline". hx febrile seizures. Multiple Sclerosis History of Any Multi-Drug Resistant Organisms: None Reported Past Surgical History: Section, Cholecystectomy, Hysterectomy, Orthopedic Surgery Additional Past Surgical History / Comment(s): rt knee sx and scope. C-SEC X 3. BILAT CTR Past Anesthesia/Blood Transfusion Reactions: Motion Sickness Past Psychological History: No Psychological Hx Reported Smoking Status: Former smoker Past Alcohol Use History: Rare Past Drug Use History: None Reported - Past Family History Mother Family Medical History: No Reported History Medications and Allergies Home Medications Medication Instructions Recorded Confirmed Type Ascorbic Acid [Vitamin C] 500 mg PO DAILY 05/19/21 05/28/22 History Biotin [Biotin Disolve] 5,000 mcg PO DAILY 05/19/21 05/28/22 History Cholecalciferol [Vitamin D3 (25 25 mcg PO DAILY 05/19/21 05/28/22 History Mcg = 1000 Iu)] Bumetanide [Bumex] 1 mg PO DAILY PRN 05/28/22 05/28/22 History Desvenlafaxine Succinate [Pristiq 50 mg PO DAILY 05/28/22 05/28/22 History ER] L.acidoph,Paracasei, B.lactis 1 cap PO DAILY 05/28/22 05/28/22 History [Probiotic] Loratadine [Claritin] 10 mg PO DAILY 05/28/22 05/28/22 History Potassium Chloride ER [K-Dur 20] 20 meq PO DAILY PRN 05/28/22 05/28/22 History Allergies Allergy/AdvReac Type Severity Reaction Status Date / Time morphine AdvReac Hallucinati Verified 05/28/22 13:15 ons Physical Exam Vitals: Vital Signs Temp Pulse Resp BP Pulse Ox 05/28/22 13:00 80 16 155/90 94 L 05/28/22 11:18 97.7 F 88 20 173/82 99 Intake and Output 05/27/22 05/28/22 05/28/22 22:59 06:59 14:59 Other: Weight 78.925 kg Results 05/28/22 11:57 05/28/22 11:57 Cardiac Enzymes 05/28/22 05/28/22 Range/Units 11:57 11:57 AST 29 (14-36) U/L Troponin I <0.012 (0.000-0.034) ng/mL Coagulation 05/28/22 Range/Units 11:57 PT 9.7 (9.0-12.0) sec APTT 23.7 (22.0-30.0) sec CBC 05/28/22 Range/Units 11:57 WBC 10.4 (3.8-10.6) k/uL RBC 4.38 (3.80-5.40) m/uL Hgb 14.0 (11.4-16.0) gm/dL Hct 41.4 (34.0-46.0) % Plt Count 279 (150-450) k/uL Comprehensive Metabolic Panel 05/28/22 Range/Units 11:57 Sodium 142 (137-145) mmol/L Potassium 4.4 (3.5-5.1) mmol/L Chloride 100 (98-107) mmol/L Carbon Dioxide 28 (22-30) mmol/L BUN 17 (7-17) mg/dL Creatinine 0.89 (0.52-1.04) mg/dL Glucose 106 H (74-99) mg/dL Calcium 10.6 H (8.4-10.2) mg/dL AST 29 (14-36) U/L ALT 25 (4-34) U/L Alkaline Phosphatase 96 (38-126) U/L Total Protein 7.7 (6.3-8.2) g/dL Albumin 4.9 (3.5-5.0) g/dL Current Medications Generic Name Dose Route Start Last Admin Trade Name Freq PRN Reason Stop Dose Admin Aspirin 325 mg 05/29/22 09:00 Aspirin 325 Mg Tab PO DAILY REX Nitroglycerin 0.4 mg 05/28/22 13:34 Nitroglycerin Sl Tabs 0.4 Mg Tab SUBLINGUAL Q5M PRN Chest Pain Intake and Output 05/27/22 05/28/22 05/28/22 22:59 06:59 14:59 Other: Weight 78.925 kg Patient Weight 05/29/22 06:59 Weight 78.925 kg 05/28/22 11:57 05/28/22 11:57
--- NOTE | 2022-05-28 17:16 | P.HPIM ---
History of Present Illness H&P Date: 05/28/22 Lilia Atkinson, is a 57 year-old female who presented to ER with a chief complaint of lightheadedness chest pressure and shortness of breath, she stated that she was unable to take a deep breath and she felt that she was going to pass out symptoms improved within minutes after patient sat down. Patient denies any previous similar symptoms, she denies any history of coronary artery disease peripheral arterial disease or seizure disorder She was evaluated in the emergency room vital examination on presentation revealed a temperature of 97.7 pulse 88 respiration 20 blood pressure 173/82 pulse ox 99% on room air Laboratory data reveals white blood count 10.4 hemoglobin 14.0 platelet count 279 sodium 142 potassium 4.4 chloride 100 CO2 28 BUN 17 creatinine 0.89 troponin and d-dimer were negative Testing in the emergency room revealed EKG revealed normal sinus rhythm with poor R-wave progression in anterior leads no ST or T-wave abnormalities, chest x-ray revealed no acute cardiopulmonary abnormality Patient was admitted to medical floor for further evaluation and treatment Past Medical History Past Medical History: Neurologic Disorder Additional Past Medical History / Comment(s): "family hx of hypertension" pt states "borderline". hx febrile seizures. Multiple Sclerosis History of Any Multi-Drug Resistant Organisms: None Reported Past Surgical History: Section, Cholecystectomy, Hysterectomy, Orthopedic Surgery Additional Past Surgical History / Comment(s): rt knee sx and scope. C-SEC X 3. BILAT CTR Past Anesthesia/Blood Transfusion Reactions: Motion Sickness Past Psychological History: No Psychological Hx Reported Smoking Status: Former smoker Past Alcohol Use History: Rare Past Drug Use History: None Reported - Past Family History Mother Family Medical History: No Reported History Medications and Allergies Home Medications Medication Instructions Recorded Confirmed Type Ascorbic Acid [Vitamin C] 500 mg PO DAILY 05/19/21 05/28/22 History Biotin [Biotin Disolve] 5,000 mcg PO DAILY 05/19/21 05/28/22 History Cholecalciferol [Vitamin D3 (25 25 mcg PO DAILY 05/19/21 05/28/22 History Mcg = 1000 Iu)] Bumetanide [Bumex] 1 mg PO DAILY PRN 05/28/22 05/28/22 History Desvenlafaxine Succinate [Pristiq 50 mg PO DAILY 05/28/22 05/28/22 History ER] L.acidoph,Paracasei, B.lactis 1 cap PO DAILY 05/28/22 05/28/22 History [Probiotic] Loratadine [Claritin] 10 mg PO DAILY 05/28/22 05/28/22 History Potassium Chloride ER [K-Dur 20] 20 meq PO DAILY PRN 05/28/22 05/28/22 History Allergies Allergy/AdvReac Type Severity Reaction Status Date / Time morphine AdvReac Hallucinati Verified 05/28/22 13:15 ons Physical Exam Vitals: Vital Signs Temp Pulse Pulse Pulse Pulse Resp BP 05/28/22 16:40 74 16 142/90 05/28/22 14:23 85 95 79 18 05/28/22 13:00 80 16 155/90 05/28/22 11:18 97.7 F 88 20 173/82 BP BP BP Pulse Ox 05/28/22 16:40 97 05/28/22 14:23 138/83 143/82 117/64 98 05/28/22 13:00 94 L 05/28/22 11:18 99 Intake and Output 05/28/22 05/28/22 05/28/22 06:59 14:59 22:59 Other: Weight 78.925 kg In general patient is alert and oriented x 3 in no distress HEENT head normocephalic and atraumatic Neck is supple no JVD no goiter no lymphadenopathy no carotid bruit Chest examination is clear to auscultation no crackles no wheezing Cardiac exam reveals regular heart sounds S1 and S2 no gallops no murmurs Abdomen is soft nontender no organomegaly with normal bowel sounds Extremity exam reveals no edema no cyanosis or clubbing Neurological examination reveals no gross focal deficits Results CBC & Chem 7: 05/28/22 11:57 05/28/22 11:57 Labs: Abnormal Lab Results - Last 24 Hours (Table) 05/28/22 05/28/22 Range/Units 11:57 11:57 Neutrophils # 7.8 H (1.3-7.7) k/uL Glucose 106 H (74-99) mg/dL Calcium 10.6 H (8.4-10.2) mg/dL Assessment and Plan Plan: Episode of near syncope Episode of chest pressure Underlying history of depression maintained on Pristiq Underlying history of hypertension Underlying history of multiple sclerosis At this time patient will be admitted to telemetry floor Home medications reviewed and reordered Patient was maintained on when necessary Bumex this will be held Cardiology consultation was requested Serial EKG and troponin level ordered Echocardiogram ordered Will follow in a.m.
[2022-05-29] MEDS ORDERED: DESVENLAFAXINE SUCCINATE 50 MG TAB.ER.24H PO SCH (09:00)
[2022-05-29] MEDS ORDERED: ASPIRIN 325 MG TAB PO SCH (09:00)
[2022-05-29] MEDS ORDERED: ASPIRIN 81 MG PO SCH (09:00)
[2022-05-29] MEDS ORDERED: NON FORMULARY DRUG (Biotin [Biotin Disolve] 5,000 MCG Tablet) PO SCH (09:00)
[2022-05-29] MEDS ORDERED: ASCORBIC ACID 500 MG TAB PO SCH (09:00)
[2022-05-29] MEDS ORDERED: CHOLECALCIFEROL 25 MCG (1000 IU) TABLET PO SCH (09:00)
[2022-05-29] MEDS ORDERED: LACTOBACILLUS ACIDOPH & BULGAR 1 EACH PACKET PO SCH (09:00)
--- NOTE | 2022-05-29 10:41 | CA ---
Transthoracic Echo Report Name: Lilia Atkinson Age: 57 Gender: F : 1965 Exam Date: 05/29/2022 07:37 Exam Location: [facility] Ht (in): 62 Wt (lb): 174 Ordering Physician: Jhony Duke Attending/Referring Phys: [id number], Srikanth Merchandiser Claudia Baker, SONIYA Procedure CPT: Indications: near syncope, chest pain Cardiac Hx: Technical Quality: Fair Contrast 1: Total Dose (mL): Contrast 2: Total Dose (mL): MEASUREMENTS (Male / Female) Normal Values 2D ECHO LV Diastolic Diameter PLAX 4.0 cm 4.2 - 5.9 / 3.9 - 5.3 cm LV Systolic Diameter PLAX 2.8 cm IVS Diastolic Thickness 1.1 cm 0.6 - 1.0 / 0.6 - 0.9 cm LVPW Diastolic Thickness 1.2 cm 0.6 - 1.0 / 0.6 - 0.9 cm LV Relative Wall Thickness 0.6 RV Internal Dim ED PLAX 3.2 cm LA Systolic Diameter LX 2.9 cm 3.0 - 4.0 / 2.7 - 3.8 cm LA Volume 25.6 cm??? 18 - 58 / 22 - 52 cm??? M-MODE Aortic Root Diameter MM 2.8 cm MV E Point Septal Separation 0.7 cm AV Cusp Separation MM 2.1 cm DOPPLER AV Peak Velocity 106.8 cm/s AV Peak Gradient 4.6 mmHg MV Area PHT 3.7 cm??? Mitral E Point Velocity 55.6 cm/s Mitral A Point Velocity 74.5 cm/s Mitral E to A Ratio 0.7 MV Deceleration Time 206.0 ms FINDINGS Left Ventricle Left ventricular ejection fraction is estimated at 55-60 %. Left ventricular cavity size normal. Borderline left ventricular hypertrophy.normal left ventricular wall motion. Right Ventricle Normal right ventricular size and function. Unable to estimate the right ventricular systolic pressure. Right Atrium Normal right atrial size. Left Atrium Normal left atrial size. No evidence for an atrial septal defect. Mitral Valve Structurally normal mitral valve. No mitral stenosis, or prolapse. Trace mitral regurgitation Aortic Valve Trileaflet aortic valve. No aortic valve stenosis or regurgitation. Focal thickening of the aortic valve cusps. Tricuspid Valve Structurally normal tricuspid valve. Pulmonic Valve Trace pulmonic regurgitation. Pericardium Normal pericardium. No pericardial effusion. Aorta Normal size aortic root and proximal ascending aorta. CONCLUSIONS 1. Normal ventricle size and systolic function 2. Trace mitral and pulmonic regurgitation 3. No pericardial effusion Previewed by: Dr. Chelsi Tolbert MD (Electronically Signed) Final Date: 29 May 2022 10:40
--- NOTE | 2022-05-29 12:02 | P.PN ---
Subjective Progress Note Date: 05/29/22 HISTORY OF PRESENT ILLNESS: This is a 57 year old female with a past medical history of hypertension (no longer on antihypertensives for about 1.5 years), Multiple sclerosis with last treatment in 2018, family history of coronary artery disease. 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 We have been consulted for near syncope. Patient presents to the emergency department after a near syncopal episode. She states this morning she was taking a shower, she had acute onset of lightheadedness, states its difficult to describe what she felt she just felt "weird/off". She states she began to have a panic feeling, some heaviness in her chest which she felt was more anxiety. She sat down on the bench in her shower, continued to have these symptoms. She states she walked out of the shower, laid down and continued to feel "strange". She had associated diaphoresis, some mild shortness of breath and nausea. She did not lose consciousness. She called her PCP and obtained an appointment at 1pm. She states her symptoms did not improve and she presented to the ER for further evaluation. This episode lasted about 30 minutes. She took her BP and it was 140s/80s. She states she progressively improved. Currently she denies any chest pain, shortness of breath, lightheadedness, dizziness. She is overall feeling well. She denies any abdominal pain, vomiting, fever, cough, chills. She did eat breakfast prior to her shower. She denies taking a warm/hot shower. This has never happened to her before. She denies any history of CAD, [place], Stroke, Diabetes, Seizures or dyslipidemia. Family history includes father had CABG in 60s, brother had [place] in his 40s. She denies any alcohol use or illicit drug use. DIAGNOSTICS * EKG reveals sinus rhythm, heart rate 78, nonspecific ST and T wave abnormalities. No prior EKG to compare * Telemetry tracings at bedside, patient in sinus rhythm * Chest xray no acute cardiopulmonary process * Laboratory reviewed, CBC unremarkable, d-dimer negative, troponin negative x 1, sodium 142, potassium 4.4, BUN 17, serum creatinine 0.8 * Current home medications include vitamin C, biotin, PRN bumex, vitamin D, probiotic, Claritin, potassium chloride PRN 05/29/2022 Patient examined this morning at the bedside. Patient denies chest pain or pressure. She denies shortness of breath. Orthostatic blood pressures were obtained and were unremarkable. Echocardiogram completed revealing ejection fraction 55-60%. Telemetry reveals sinus mechanism. PHYSICAL EXAM: VITAL SIGNS: Reviewed. GENERAL: Well-developed in no acute distress. NECK: Supple. No JVD or thyromegaly LUNGS: Respirations even and unlabored. Lungs essentially clear to auscultation bilaterally. HEART: Regular rate and rhythm. S1 and S2 heard. EXTREMITIES: Normal range of motion. No clubbing or cyanosis. Peripheral pulses intact. No lower extremity edema ASSESSMENT: Presyncope Hypertension Multiple sclerosis Family history of coronary artery disease PLAN: Continue current cardiac medications Increase ambulation this afternoon Continue telemetry monitoring If patient remains stable she may be discharged home this afternoon in follow-up on an outpatient basis. Nurse practitioner note has been reviewed by physician. Signing provider agrees with the documented findings, assessment, and plan of care. Objective - Vital Signs Vital signs: Vital Signs Temp 98 F 05/29/22 11:54 Pulse 85 05/29/22 11:54 Resp 18 05/29/22 11:54 BP 112/70 05/29/22 11:54 Pulse Ox 95 05/29/22 11:54 FiO2 Intake & Output 05/28/22 05/29/22 05/29/22 18:59 06:59 18:59 Intake Total 0 Balance 0 Weight 78.925 kg 78.925 kg Intake: Oral 0 Other: Voiding Method Toilet # Voids 1 - Labs CBC & Chem 7: 05/28/22 11:57 05/28/22 11:57 Labs: Abnormal Lab Results - Last 24 Hours (Table) 05/28/22 05/28/22 Range/Units 11:57 11:57 Neutrophils # 7.8 H (1.3-7.7) k/uL Glucose 106 H (74-99) mg/dL Calcium 10.6 H (8.4-10.2) mg/dL
[2022-05-29 16:54] LABS: Chol/HDL Ratio 7.01 Ratio; LDL Cholesterol,Calculated 191.5 mg/dL (0.0-131.0)
--- NOTE | 2022-05-29 17:19 | P.DS ---
Providers Date of admission: 05/28/22 13:21 Expected date of discharge: 05/29/22 Attending physician: Indra Kilgore Consults: 05/28/22 13:35 Consult Physician Urgent Consulting Provider: George Remy Consult Reason/Comments: near syncope, chest pain Do you want consulting provider notified?: Yes Primary care physician: Micheline Wolfe Hospital Course: Diagnosis on discharge: Episode of near syncope Episode of chest pressure Underlying history of depression maintained on Pristiq Underlying history of hypertension Underlying history of multiple sclerosis Hospital course: Lilia Atkinson, is a 57 year-old female who presented to [facility] ER with a chief complaint of lightheadedness chest pressure and shortness of breath, she stated that she was unable to take a deep breath and she felt that she was going to pass out symptoms improved within minutes after patient sat down. Patient denies any previous similar symptoms, she denies any history of coronary artery disease peripheral arterial disease or seizure disorder She was evaluated in the emergency room vital examination on presentation revealed a temperature of 97.7 pulse 88 respiration 20 blood pressure 173/82 pulse ox 99% on room air Laboratory data reveals white blood count 10.4 hemoglobin 14.0 platelet count 279 sodium 142 potassium 4.4 chloride 100 CO2 28 BUN 17 creatinine 0.89 troponin and d-dimer were negative Testing in the emergency room revealed EKG revealed normal sinus rhythm with poor R-wave progression in anterior leads no ST or T-wave abnormalities, chest x-ray revealed no acute cardiopulmonary abnormality Patient was admitted to medical floor for further evaluation and treatment On 05/29/2022 patient was seen and examined on the telemetry floor she is alert and oriented 3 in no apparent distress, there is no fever or chills no headache or dizziness no chest pain no shortness of breath no cough no nausea or vomiting no abdominal pain no diarrhea no blood in the stools no burning with urination no frequency or urgency and no hematuria. Patient was evaluated by cardiology echocardiogram was done, she was cleared for discharge this afternoon after she ambulates. Patient will be discharged to home today, she will follow-up with cardiology as outpatient for further testing including possible stress test and possible Holter monitor. Patient was also advised to follow-up with her primary care physician in 2-3 days, she was advised to follow-up with her neurologist to make sure that this episode is not related to her known diagnosis of multiple sclerosis Patient Condition at Discharge: Fair Plan - Discharge Summary Discharge Rx Participant: Yes New Discharge Prescriptions: Continue RX: Cholecalciferol [Vitamin D3 (25 Mcg = 1000 Iu)] 25 mcg PO DAILY RX: Ascorbic Acid [Vitamin C] 500 mg PO DAILY RX: Biotin [Biotin Disolve] 5,000 mcg PO DAILY RX: Potassium Chloride ER [K-Dur 20] 20 meq PO DAILY PRN PRN Reason: W/BUMEX RX: L.acidoph,Paracasei, B.lactis [Probiotic] 1 cap PO DAILY RX: Loratadine [Claritin] 10 mg PO DAILY RX: Desvenlafaxine Succinate [Pristiq ER] 50 mg PO DAILY RX: Bumetanide [BUMEX] 1 mg PO DAILY PRN PRN Reason: Edema Discharge Medication List RX: Ascorbic Acid [Vitamin C] 500 mg PO DAILY 05/19/21 [History] RX: Biotin [Biotin Disolve] 5,000 mcg PO DAILY 05/19/21 [History] RX: Cholecalciferol [Vitamin D3 (25 Mcg = 1000 Iu)] 25 mcg PO DAILY 05/19/21 [History] RX: Bumetanide [BUMEX] 1 mg PO DAILY PRN 05/28/22 [History] RX: Desvenlafaxine Succinate [Pristiq ER] 50 mg PO DAILY 05/28/22 [History] RX: L.acidoph,Paracasei, B.lactis [Probiotic] 1 cap PO DAILY 05/28/22 [History] RX: Loratadine [Claritin] 10 mg PO DAILY 05/28/22 [History] RX: Potassium Chloride ER [K-Dur 20] 20 meq PO DAILY PRN 05/28/22 [History] Follow up Appointment(s)/Referral(s): Micheline Wolfe MD [Primary Care Provider] - 1-2 days
[2022-05-29 17:46] VITALS: BP 124/75; PULSE 80; RESP 16; TEMP 98.1
== END 2022-05-29 18:41 | disposition home or self-care (01) ==
LOC: EC 11:07 → 6NMEDSUR 13:21 → 3SCARD 17:49
PROVIDERS: ADMIT Internal Medicine; ATTEND Internal Medicine
DX: R55 Syncope and collapse (principal); G35 Multiple sclerosis; I10 Essential (primary) hypertension; R07.89 Other chest pain; R06.02 Shortness of breath; R11.0 Nausea; R61 Generalized hyperhidrosis; R42 Dizziness and giddiness; F41.9 Anxiety disorder, unspecified; F32.A Depression, unspecified; Z88.5 Allergy status to narcotic agent; Z79.899 Other long term (current) drug therapy; Z90.710 Acquired absence of both cervix and uterus; Z90.49 Acquired absence of other specified parts of digestive tract; Z98.891 History of uterine scar from previous surgery; Z87.891 Personal history of nicotine dependence; Z98.890 Other specified postprocedural states; Z82.49 Family history of ischemic heart disease and other diseases of the circulatory system
CPT/HCPCS: 96360; 96361; 99285; 36415; 93005; 93306; 85379; 80061; 80053; 84443; 84484; 85025; 85610; 85730; 71046; G0378 ×3

== ENCOUNTER → 2022-06-07 | Outpatient (CLI) | payer MEDICARE, BC ==
--- NOTE | 2022-06-07 14:35 | MM ---
Reason for Exam: Follow-up of a probably benign lesion. Last screening mammogram was performed 6 month(s) ago. Patient History: Menarche at age 9. First Full-Term at age 24. Hysterectomy at age 33. 06/06/2021, Lumpectomy on the Right side. 06/06/2021, Benign Core Biopsy on the right side. Maternal aunt had breast cancer, age 40. Risk Values: Maxine 5 year model risk: 1.9%. NCI Lifetime model risk: 10.9%. Prior Study Comparison: 10/19/2020 Bilateral Screening Mammogram, [facility]. 04/11/2021 Right Diagnostic Mammogram, [facility]. 12/05/2021 Bilateral Diagnostic Mammogram, [facility]. Tissue Density: Right: The breast tissue is heterogeneously dense. This may lower the sensitivity of mammography. Findings: Analyzed By CAD. Surgical clips redemonstrated centrally in the right breast. Small group of coarse microcalcifications medially remains unchanged. Areas of asymmetric density also remain unchanged, particularly the asymmetric density far lateral at a middle to posterior depth. This density actually appears less defined. Low axillary tail lymph node is also unchanged. Overall Assessment: Incomplete: need additional imaging evaluation, BI-RAD 0 Management: Diagnostic Breast Ultrasound of the right breast. Electronically signed and approved by: Ganesh Casas M.D. Radiologist
--- NOTE | 2022-06-07 14:36 | USB ---
Patient History: Menarche at age 9. First Full-Term at age 24. Hysterectomy at age 33. 06/06/2021, Lumpectomy on the Right side. 06/06/2021, Benign Core Biopsy on the right side. Maternal aunt had breast cancer, age 40. Risk Values: Maxine 5 year model risk: 1.9%. NCI Lifetime model risk: 10.9%. Technique: Method: Targeted. Prior Study Comparison: 10/19/2020 Bilateral Screening Mammogram, [facility]. 04/11/2021 Right Diagnostic Mammogram, [facility]. 12/05/2021 Bilateral Diagnostic Mammogram, [facility]. Findings: The upper outer quadrant of the right breast, the axilla of the right breast and the retroareolar of the right breast were scanned. Targeted ultrasound right breast upper outer quadrant 9:00 to 12:00 including the subareolar region and axilla. Patch of dense tissue at the 10:00 position probably corresponds to the radius finding. This also appears less defined with the current ultrasound findings. No suspicious solid or cystic lesion or axillary lymphadenopathy.. Overall Assessment: Benign, BI-RAD 2 Management: Screening Mammogram of both breasts in 6 months. 1. Patient should continue monthly self breast exams. 2. A clinical breast exam by your physician is recommended on an annual basis. 3. This exam should not preclude additional follow-up of suspicious palpable abnormalities. Results were given to the patient verbally at the time of exam. Electronically signed and approved by: Ganesh Casas M.D. Radiologist
== END | disposition home or self-care (01) ==
LOC: RADMAMWWP 12:40
PROVIDERS: ATTEND Surgery
DX: R92.8 Other abnormal and inconclusive findings on diagnostic imaging of breast (principal); Z80.3 Family history of malignant neoplasm of breast; Z98.890 Other specified postprocedural states
CPT/HCPCS: 77065; 76642; G0279; 77061

== ENCOUNTER → 2022-06-14 | Outpatient (CLI) | payer MEDICARE, BC ==
[2022-06-14 10:56] VITALS: BP 174/90; PULSE 65; RESP 16; TEMP 97.9
--- NOTE | 2022-06-14 11:11 | P.PN ---
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 Wolfe regarding bloody nipple discharge from her right breast. She underwent a bilateral mammogram on which was benign BIRADS 2. She then underwent a right breast mammogram and [id number] which did not show any discrete abnormality. This was followed by an ultrasound which revealed some duct ectasia. This had been for about 6 weeks. It appeared to be from an isolated area. She noted the blood in her bra. It was spontaneous. She did not have anything like that on the left side. She had intermittent burning sensation in the right breast. She had no history of any recent trauma or infection in the breast. On 06-06-21 she underwent a right breast duct exploration. This revealed benign mammary duct ectasia. The patient underwent a bilateral mammogram on . This resulted in an ultrasound of the right breast. This was repeated on the same day and the ultrasound revealed a 0.9 x 0.6 cm lesion at 10:00. This seemed to be a cystic cluster embedded in the longer patch of dense tissue. Six-month follow-up diagnostic mammogram of the right breast in 6 months was recommended. She has not noted any lumps masses or nudules in either breast of concern. She does not have any more nipple discharge on either side. The bloody nipple discharge on the right side as stopped since her right breast duct exploration. 06-14-22 Repeat right breast mammogram in [id number]. This led to the right breast ultrasound on the same date. This was a targeted ultrasound of the upper outer quadrant 9 to 12:00 including the subareolar region and axilla. A patch of dense tissue at 10 o'clock position was noted but no suspicious solid or cystic lesions. This was overall benign BIRADS 2. Not complaining of any lumps masses or nodules of concern in either breast at this time. Bilateral mammogram in 6 months was recommended. Caffeine:1 pop/day in the past, no caffeine at this time nicotine: none chocolate: occasional Family History: maternal aunt: breast mother: colon pre-cancer maternal aunt: thyroid cancer Hormonal History: menarche: 10 , age at first : 24, breast fed: yes menopause: hysterectomy at 34, left ovaries not for cancer BCP: about 3 years hormones: none Surgical History: Hysterectomy Right knee surgery 4 surgeries carpel tunnel gallbaldder D&C laproscopic exam right breast duct exploration Medical History: Multiple Sclerosis (treatment with lemtrada to wipe out immune system; through Dr. Austin office in remission) HTN Social History: smoke: stopped 40 years ago alcohol: seldom drugs: none - Constitutional Constitutional: Reports sweats - EENT Eyes: denies blurred vision, denies pain Ears: deny: decreased hearing, tinnitus Ears, nose, mouth and throat: Denies headache, Denies sore throat - Breasts Breasts: bilateral: as per HPI - Cardiovascular Cardiovascular: Denies chest pain, Denies shortness of breath - Respiratory Respiratory: Denies cough - Gastrointestinal Gastrointestinal: Denies abdominal pain, Denies diarrhea, Denies nausea, Denies vomiting - Genitourinary (Female) Genitourinary: Denies dysuria, Denies hematuria - Menstruation Menstruation: Reports post hysterectomy - Musculoskeletal Comment: multiple sclerosis difficulty with walking Musculoskeletal: Denies myalgias - Integumentary Integumentary: Denies pruritus, Denies rash - Neurological Comment: multiple sclerosis - Psychiatric Psychiatric: Denies anxiety, Denies depression - Endocrine Endocrine: Denies fatigue, Denies weight change - Hematologic/Lymphatic Comment: none - Allergic/Immunologic Allergic/Immunologic: Reports as per HPI Objective - Vital Signs Vital signs: Vital Signs Temp 97.9 F 06/14/22 10:51 Pulse 65 06/14/22 10:51 Resp 16 06/14/22 10:51 BP 174/90 06/14/22 10:51 Pulse Ox 100 06/14/22 10:51 FiO2 Intake & Output 06/13/22 06/14/22 06/14/22 18:59 06:59 18:59 Weight 78.018 kg - Constitutional General appearance: Present: cooperative - EENT Eyes: Present: EOMI ENT: Present: hearing grossly normal - Neck Neck: Present: normal ROM - Respiratory Respiratory: bilateral: CTA - Cardiovascular Rhythm: regular Heart sounds: normal: S1, S2 - Gastrointestinal General gastrointestinal: Present: soft - Integumentary Integumentary: Present: normal turgor - Musculoskeletal Musculoskeletal: Present: gait normal - Psychiatric Psychiatric: Present: A&O x's 3, appropriate affect, intact judgment & insight - Additional findings Additional findings: Breast Exam: BRA: 38C inspection: bilateral grade 2 ptosis palpation: right breast: Multiple positional exam fibrocystic changes no dominant masses or nodules of concern, well-healed scar from prior surgery Right axilla: No adenopathy of concern Left breast: Multi-positional exam fibrocystic changes no dominant masses or nodules of concern Left axilla: No adenopathy of concern Assessment and Plan Assessment: Pressure: Fibrocystic breast changes Plan: Bilateral mammogram 1 year with physician exam at that time If patient notes anything of concern she will call us sooner CC: Dr. Wolfe
== END ==
LOC: WWCWWP 10:25
PROVIDERS: ATTEND Surgery
DX: R92.8 Other abnormal and inconclusive findings on diagnostic imaging of breast (principal); N60.11 Diffuse cystic mastopathy of right breast; I10 Essential (primary) hypertension; Z88.7 Allergy status to serum and vaccine; Z88.5 Allergy status to narcotic agent; Z87.891 Personal history of nicotine dependence

== ENCOUNTER → 2022-11-06 | Outpatient (CLI) | payer MEDICARE, BC ==
--- NOTE | 2022-11-07 10:08 | MM ---
Reason for Exam: Screening (asymptomatic). Last screening mammogram was performed 11 month(s) ago. Patient History: Menarche at age 9. First Full-Term at age 24. Hysterectomy at age 33. 06/06/2021, Lumpectomy on the Right side. 06/06/2021, Benign Core Biopsy on the right side. Maternal aunt had breast cancer, age 40. Risk Values: Maxine 5 year model risk: 1.9%. NCI Lifetime model risk: 10.9%. Prior Study Comparison: 04/11/2021 Right Diagnostic Mammogram, [facility]. 12/05/2021 Bilateral Diagnostic Mammogram, [facility]. 06/07/2022 Right MG 3D diag mammo w/cad RT, [facility]. Tissue Density: The breast tissue is heterogeneously dense. This may lower the sensitivity of mammography. Analyzed By CAD. Overall Assessment: Benign, BI-RAD 2 Management: Screening Mammogram of both breasts in 1 year. Electronically signed and approved by: Teddy Pedroza M.D.
== END | disposition home or self-care (01) ==
LOC: RADMAMWWP 08:23
PROVIDERS: ATTEND Surgery
DX: Z12.31 Encounter for screening mammogram for malignant neoplasm of breast (principal); Z80.3 Family history of malignant neoplasm of breast
CPT/HCPCS: 77063; 77067

== ENCOUNTER → 2022-11-30 | Outpatient (CLI) | payer MEDICARE, BC ==
--- NOTE | 2022-11-30 10:22 | P.PN ---
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 Wolfe regarding bloody nipple discharge from her right breast. She underwent a bilateral mammogram on which was benign BIRADS 2. She then underwent [place] [id number] which did not show any discrete abnormality. This was followed by an ultrasound which revealed some duct ectasia. This had been for about 6 weeks. It appeared to be from an isolated area. She noted the blood in her bra. It was spontaneous. She did not have anything like that on the left side. She had intermittent burning sensation in the right breast. She had no history of any recent trauma or infection in the breast. On 06-06-21 she underwent a right breast duct exploration. This revealed benign mammary duct ectasia. The patient underwent a bilateral mammogram on . This resulted in an ultrasound of the right breast. This was repeated on the same day and the ultrasound revealed a 0.9 x 0.6 cm lesion at 10:00. This seemed to be a cystic cluster embedded in the longer patch of dense tissue. Six-month follow-up diagnostic mammogram of the right breast in 6 months was recommended. She has not noted any lumps masses or nudules in either breast of concern. She does not have any more nipple discharge on either side. The bloody nipple discharge on the right side as stopped since her right breast duct exploration. 06-14-22 Repeat right breast mammogram in [id number]. This led to the right breast ultrasound on the same date. This was a targeted ultrasound of the upper outer quadrant 9 to 12:00 including the subareolar region and axilla. A patch of dense tissue at 10 o'clock position was noted but no suspicious solid or cystic lesions. This was overall benign BIRADS 2. Not complaining of any lumps masses or nodules of concern in either breast at this time. Bilateral mammogram in 6 months was recommended. 11-30-22 Bilateral mammogram on 11-06-22 BIRAD 2; the patient complains of some tenderness and nodularity at the upper inner aspect of the left breast. She states it has been intermittently present for several months but has been more persistent recently. She is not complaining of any nipple discharge or skin changes. Caffeine:1 pop/day in the past, no caffeine at this time nicotine: none chocolate: occasional Family History: maternal aunt: breast mother: colon pre-cancer maternal aunt: thyroid cancer Hormonal History: menarche: 10 , age at first : 24, breast fed: yes menopause: hysterectomy at 34, left ovaries not for cancer BCP: about 3 years hormones: none Surgical History: Hysterectomy Right knee surgery 4 surgeries carpel tunnel gallbaldder D&C laproscopic exam right breast duct exploration Medical History: Multiple Sclerosis (treatment with lemtrada to wipe out immune system; through Dr. Austin office in remission) HTN Social History: smoke: stopped 40 years ago alcohol: seldom drugs: none - Constitutional Constitutional: Reports sweats - EENT Eyes: denies blurred vision, denies pain Ears: deny: decreased hearing, tinnitus Ears, nose, mouth and throat: Denies headache, Denies sore throat - Breasts Breasts: bilateral: as per HPI - Cardiovascular Cardiovascular: Denies chest pain, Denies shortness of breath - Respiratory Respiratory: Denies cough - Gastrointestinal Gastrointestinal: Denies abdominal pain, Denies diarrhea, Denies nausea, Denies vomiting - Genitourinary (Female) Genitourinary: Denies dysuria, Denies hematuria - Menstruation Menstruation: Reports post hysterectomy - Musculoskeletal Comment: multiple sclerosis difficulty with walking Musculoskeletal: Denies myalgias - Integumentary Integumentary: Denies pruritus, Denies rash - Neurological Comment: multiple sclerosis - Psychiatric Psychiatric: Denies anxiety, Denies depression - Endocrine Endocrine: Denies fatigue, Denies weight change - Hematologic/Lymphatic Comment: none - Allergic/Immunologic Allergic/Immunologic: Reports as per HPI Objective - Constitutional General appearance: Present: cooperative - EENT Eyes: Present: EOMI ENT: Present: hearing grossly normal - Neck Neck: Present: normal ROM - Respiratory Respiratory: bilateral: CTA - Cardiovascular Rhythm: regular Heart sounds: normal: S1, S2 - Gastrointestinal General gastrointestinal: Present: soft - Integumentary Integumentary: Present: normal turgor - Musculoskeletal Musculoskeletal: Present: gait normal - Psychiatric Psychiatric: Present: A&O x's 3, appropriate affect, intact judgment & insight - Additional findings Additional findings: Breast Exam: BRA: 38C inspection: bilateral grade 2 ptosis palpation: right breast: Multiple positional exam fibrocystic changes no dominant masses or nodules of concern, well-healed scar from prior surgery Right axilla: No adenopathy of concern Left breast: Multi-positional exam fibrocystic changes, slight increased nodularity in the upper inner aspect which is most likely indicative of lobulated breast tissue this will be further evaluated Left axilla: No adenopathy of concern Assessment and Plan Assessment: Assessment and Plan Assessment: Pressure: Fibrocystic breast changes Bilateral mammogram [id number] benign BIRADS 2 Total abnormality in the left breast in the upper inner quadrant Plan: Bilateral mammogram 1 year with physician exam at that time Focused ultrasound to the area of the left upper breast with the patient feels some nodularity I suspect that this is lobulated breast tissue Follow-up after the ultrasound CC: Dr. Wolfe Additional CC's: Micheline Wolfe
[2022-11-30 11:04] VITALS: BP 138/80; PULSE 87; RESP 16; TEMP 97.9
== END ==
LOC: WWCWWP 09:08
PROVIDERS: ATTEND Surgery
DX: N60.29 Fibroadenosis of unspecified breast (principal); Z12.31 Encounter for screening mammogram for malignant neoplasm of breast; Z88.7 Allergy status to serum and vaccine; Z88.5 Allergy status to narcotic agent

== ENCOUNTER → 2022-12-13 | Outpatient (CLI) | payer MEDICARE, BC ==
--- NOTE | 2022-12-13 11:01 | USB ---
Reason for Exam: Clinical finding. Patient History: Menarche at age 9. First Full-Term at age 24. Hysterectomy at age 33. 06/06/2021, Lumpectomy on the Right side. 06/06/2021, Benign Core Biopsy on the right side. Maternal aunt had breast cancer, age 40. Risk Values: Maxine 5 year model risk: 1.9%. NCI Lifetime model risk: 10.9%. Technique: Method: Targeted. Prior Study Comparison: 12/05/2021 Bilateral Diagnostic Mammogram, [facility]. 06/07/2022 Right MG 3D diag mammo w/cad RT, [facility]. 11/06/2022 Bilateral MG 3D screening mammo w/cad, [facility]. Findings: The area of palpable concern of the left breast, the axilla of the left breast and the retroareolar of the left breast were scanned. Targeted ultrasound of the left breast at 11:00 patient's region of palpable abnormality was obtained. Additional evaluation of the nipple and axilla was performed. There is a isoechoic mass in the left breast 11:00 8 cm from the nipple corresponding. This demonstrates indistinct borders without internal vascular flow and no posterior acoustic features. It is parallel in orientation. This blends in with the stranding tissue is consistent with a lipoma. Overall Assessment: Benign, BI-RAD 2 Management: Screening Mammogram of both breasts in 1 year. Clinical management for left breast lipoma. A clinical breast exam by your physician is recommended on an annual basis and results should be correlated with mammographic findings. This exam should not preclude additional follow-up of suspicious palpable abnormalities. Results were given to the patient verbally at the time of exam. Electronically signed and approved by: Jarrod Melgar D.O.
[2022-12-13 11:23] VITALS: BP 158/83; PULSE 75; RESP 17; TEMP 98.2
--- NOTE | 2022-12-13 11:25 | P.PN ---
Subjective Progress Note Date: 12/13/22 Principal diagnosis: fibrocystic breast changes duct ectasia right breast 12-08-21 Lilia is a 56-year-old white female who was seen in consultation for Dr. Wolfe regarding bloody nipple discharge from her right breast. She underwent a bilateral mammogram on which was benign BIRADS 2. She then [place] [id number] which did not show any discrete abnormality. This was followed by an ultrasound which revealed some duct ectasia. This had been for about 6 weeks. It appeared to be from an isolated area. She noted the blood in her bra. It was spontaneous. She did not have anything like that on the left side. She had intermittent burning sensation in the right breast. She had no history of any recent trauma or infection in the breast. On 06-06-21 she underwent a right breast duct exploration. This revealed benign mammary duct ectasia. The patient underwent a bilateral mammogram on . This resulted in an ultrasound of the right breast. This was repeated on the same day and the ultrasound revealed a 0.9 x 0.6 cm lesion at 10:00. This seemed to be a cystic cluster embedded in the longer patch of dense tissue. Six-month follow-up diagnostic mammogram of the right breast in 6 months was recommended. She has not noted any lumps masses or nudules in either breast of concern. She does not have any more nipple discharge on either side. The bloody nipple discharge on the right side as stopped since her right breast duct exploration. 06-14-22 Repeat right breast mammogram in [id number]. This led to the right breast ultrasound on the same date. This was a targeted ultrasound of the upper outer quadrant 9 to 12:00 including the subareolar region and axilla. A patch of dense tissue at 10 o'clock position was noted but no suspicious solid or cystic lesions. This was overall benign BIRADS 2. Not complaining of any lumps masses or nodules of concern in either breast at this time. Bilateral mammogram in 6 months was recommended. 11-30-22 Bilateral mammogram on 11-06-22 BIRAD 2; the patient complains of some tenderness and nodularity at the upper inner aspect of the left breast. She states it has been intermittently present for several months but has been more persistent recently. She is not complaining of any nipple discharge or skin changes. 12-13-22 Results of ultrasound of the left breast reviewed. BIRAD 2. Maxine Risk 1.9% patient declined chemoprevention Caffeine:1 pop/day in the past, no caffeine at this time nicotine: none chocolate: occasional Family History: maternal aunt: breast mother: colon pre-cancer maternal aunt: thyroid cancer Hormonal History: menarche: 10 , age at first : 24, breast fed: yes menopause: hysterectomy at 34, left ovaries not for cancer BCP: about 3 years hormones: none Surgical History: Hysterectomy Right knee surgery 4 surgeries carpel tunnel gallbaldder D&C laproscopic exam right breast duct exploration Medical History: Multiple Sclerosis (treatment with lemtrada to wipe out immune system; through Dr. Austin office in remission) HTN Social History: smoke: stopped 40 years ago alcohol: seldom drugs: none - Constitutional Constitutional: Reports sweats - EENT Eyes: denies blurred vision, denies pain Ears: deny: decreased hearing, tinnitus Ears, nose, mouth and throat: Denies headache, Denies sore throat - Breasts Breasts: bilateral: as per HPI - Cardiovascular Cardiovascular: Denies chest pain, Denies shortness of breath - Respiratory Respiratory: Denies cough - Gastrointestinal Gastrointestinal: Denies abdominal pain, Denies diarrhea, Denies nausea, Denies vomiting - Genitourinary (Female) Genitourinary: Denies dysuria, Denies hematuria - Menstruation Menstruation: Reports post hysterectomy - Musculoskeletal Comment: multiple sclerosis difficulty with walking Musculoskeletal: Denies myalgias - Integumentary Integumentary: Denies pruritus, Denies rash - Neurological Comment: multiple sclerosis - Psychiatric Psychiatric: Denies anxiety, Denies depression - Endocrine Endocrine: Denies fatigue, Denies weight change - Hematologic/Lymphatic Comment: none - Allergic/Immunologic Allergic/Immunologic: Reports as per HPI Objective - Vital Signs Vital signs: Intake & Output 12/12/22 12/13/22 12/13/22 18:59 06:59 18:59 Weight 82.554 kg Assessment and Plan Assessment: Assessment and Plan Assessment: Impression: Fibrocystic breast changes Bilateral mammogram [id number] benign BIRADS 2 ultrasound left breast BIRAD 2 ( 12-13-22) Plan: Bilateral mammogram 1 year with physician exam at that time Focused ultrasound was benign BIRAD 2 Patient will follow up sooner any questions or concerns CC: Dr. Wolfe Additional CC's: Micheline Wolfe
== END ==
LOC: WWCWWP 12-07 09:16
PROVIDERS: ATTEND Surgery
DX: N60.11 Diffuse cystic mastopathy of right breast (principal); I10 Essential (primary) hypertension; N60.41 Mammary duct ectasia of right breast; N60.42 Mammary duct ectasia of left breast; N63.22 Unspecified lump in the left breast, upper inner quadrant; N64.52 Nipple discharge; Z80.0 Family history of malignant neoplasm of digestive organs; Z80.3 Family history of malignant neoplasm of breast; G35 Multiple sclerosis; Z88.7 Allergy status to serum and vaccine; Z88.5 Allergy status to narcotic agent

== ENCOUNTER → 2023-07-12 | Outpatient (CLI) | payer MEDICARE, BC ==
[2023-07-12 12:02] LABS: ALT 19 U/L (4-34); AST 23 U/L (14-36); African American GFR (CKD) 86 (>60 ml/min/1.73 sqM); Albumin/Globulin Ratio 1.5; Alkaline Phosphatase 78 U/L (38-126); Anion Gap 8 mmol/L; Blood Urea Nitrogen 22 mg/dL (7-17); Calcium 9.6 mg/dL (8.4-10.2); Carbon Dioxide 31 mmol/L (22-30); Chloride 105 mmol/L (98-107); Globulin 2.6 g/dL; Glucose 122 mg/dL (74-99); Non-African American GFR(CKD) 75 (>60 ml/min/1.73 sqM); Potassium 4.3 mmol/L (3.5-5.1); Sodium 144 mmol/L (137-145); Total Bilirubin 0.5 mg/dL (0.2-1.3); Total Protein 6.6 g/dL (6.3-8.2)
[2023-07-12 12:10] LABS: NT-Pro-B-Type Natriuretic Pept 103 pg/mL
== END | disposition home or self-care (01) ==
LOC: LABWHC1 10:39
PROVIDERS: ATTEND Internal Medicine Interventional Cardiology
DX: R06.02 Shortness of breath (principal); R60.9 Edema, unspecified
CPT/HCPCS: 36415; 80053; 83880

== ENCOUNTER 2023-10-16 11:46 | Day surgery (SDC) | payer MEDICARE, BC ==
[~2023-10-16 11:46] MED LIST changes: -HEPARIN SODIUM,PORCINE/PF 5,000 UNIT/0.5 ML SYRINGE SQ PRN; -LACTATED RINGERS 1,000 ML IV SCH; -ONDANSETRON 4 MG/2 ML VIAL IVP ONE; -Pre Op ABX Message 1 EACH MISC MISCELLANE ONE; -fentaNYL (PF) 50 MCG/ML 2 ML AMP IV PRN
[2023-10-16] MEDS: LACTATED RINGERS 1,000 ML IV SCH (12:32)
[2023-10-16 12:37] VITALS: RESP 16; TEMP 97.5
[2023-10-16] MEDS ORDERED: LIDOCAINE 1% INJ 10MG/ML (20 ML MDV) ONE (13:15)
[2023-10-16] MEDS ORDERED: PROPOFOL 10 MG/ML 20 ML VIAL IV ONE (13:15)
--- NOTE | 2023-10-16 13:37 | P.PCN ---
Date of Procedure: 10/16/23 Procedure(s) Performed: Brief history: Patient is a pleasant 58-year-old white female scheduled for an elective upper endoscopy as well as colonoscopy as a part of evaluation of epigastric pain and abdominal bloating for the last few months duration. Recently was started on Pepcid 20 mg daily and symptoms are gradually improving. She also has prior history of colon polyps. Procedure performed: Esophagogastroduodenoscopy with biopsy Colonoscopy Preoperative diagnosis: Epigastric pain and post prandial abdominal bloating a few months duration History of colon polyps Anesthesia: MAC Procedure: After informed consent was obtained from the patient was brought into the endoscopy unit and IV sedation was administered by anesthesia under continuous monitoring. Initially upper endoscopy was done. The Olympus GF 160 video endoscope was inserted inserted into the mouth and esophagus intubated without any difficulty and was gradually advanced into the stomach and duodenum and carefully examined. The bulb and second part of the duodenum appeared normal. The scope was then withdrawn into the stomach adequately insufflated with air and upon careful examination the antrum had mild gastritis and biopsies were done from this area. Mucosa of the body, cardia and fundus appeared normal. The scope was then withdrawn into the esophagus. The GE junction was located at 40 cm to the incisors. It appeared regular with no erythema erosions or ulcerations. Rest of the esophagus appeared normal. Abscesses were done from the distal esophagus. Patient tolerated the procedure well. At this time the patient continued to remain sedation. Initial digital rectal examination was normal. Olympus CF 160 video colonoscope was then inserted into the rectum and gradually advanced to the cecum without any difficulty. Careful examination was performed as the scope was gradually being withdrawn. The prep was excellent. The cecum, ascending colon, transverse colon, descending colon, sigmoid colon and rectum appeared normal. Retroflexion was performed in the rectum and grade 2 internal hemorrhoids were noted. Patient tolerated the procedure well. Impression: 1. Upper endoscopy revealed mild antral gastritis but no evidence of esophagitis or peptic ulcer disease 2. Colonoscopy revealed a 2 internal hemorrhoids but no evidence of colorectal neoplasia Recommendations: Findings of this examination were discussed with the patient as well as her family. She was advised to follow with the biopsy result. Continue with Pepcid 20 mg twice daily and follow antrum reflux measures. Recommend repeat colonoscopy in 5 years because of the prior history of colon polyps
[2023-10-16 14:10] VITALS: BP 113/65; PULSE 84
== END 2023-10-16 14:15 | disposition home or self-care (01) ==
LOC: ORWHC2ENDO 11:46
PROVIDERS: ATTEND Internal Medicine Gastroenterology
DX: Z12.11 Encounter for screening for malignant neoplasm of colon (principal); K29.50 Unspecified chronic gastritis without bleeding; K64.1 Second degree hemorrhoids; I10 Essential (primary) hypertension; F17.200 Nicotine dependence, unspecified, uncomplicated; G40.909 Epilepsy, unspecified, not intractable, without status epilepticus; Z86.010 Personal history of colon polyps
CPT/HCPCS: 43239; G0121; 45378; 88305

== ENCOUNTER → 2023-11-08 | Outpatient (CLI) | payer MEDICARE, BC ==
--- NOTE | 2023-11-12 09:24 | MM ---
Reason for Exam: Screening (asymptomatic). Last screening mammogram was performed 12 month(s) ago. Patient History: Menarche at age 9. First Full-Term at age 24. Hysterectomy at age 33. Postmenopausal. 06/06/2021, Lumpectomy on the Right side. 06/06/2021, Benign Core Biopsy on the right side. Maternal aunt had breast cancer, age 40. Risk Values: Maxine 5 year model risk: 2.0%. NCI Lifetime model risk: 10.7%. Prior Study Comparison: 12/05/2021 Bilateral Diagnostic Mammogram, [facility]. 06/07/2022 Right MG 3D diag mammo w/cad RT, [facility]. 11/06/2022 Bilateral MG 3D screening mammo w/cad, [facility]. Tissue Density: The breasts are heterogeneously dense, which may obscure small masses. Findings: Analyzed By CAD. Right breast surgical clips. The right breast calcifications. There is no suspicious group of microcalcifications or new suspicious mass. Overall Assessment: Benign, BI-RAD 2 Management: Screening Mammogram of both breasts in [address] [facility] will attempt to contact patient to return for supplemental views and ultrasound if indicated. Patient should continue monthly self-breast exams. A clinical breast exam by your physician is recommended on an annual basis. This exam should not preclude additional follow-up of suspicious palpable abnormalities. Note on Maxine scores and lifetime risk: 1. A Maxine score greater than 3% is considered moderate risk. If this is the case, consider specialist referral to assess eligibility for a risk reducing agent. 2. If overall lifetime risk for the development of breast cancer is 20% or higher, the patient may qualify for future screening with alternating mammogram and breast MRI. Electronically signed and approved by: Ron Meade DO
== END | disposition home or self-care (01) ==
LOC: RADMAMWWP 10:06
PROVIDERS: ATTEND Surgery
DX: Z12.31 Encounter for screening mammogram for malignant neoplasm of breast (principal); Z78.0 Asymptomatic menopausal state; Z80.3 Family history of malignant neoplasm of breast
CPT/HCPCS: 77063; 77067

== ENCOUNTER → 2023-11-14 | Outpatient (CLI) | payer MEDICARE, BC ==
[2023-11-14 10:57] VITALS: BP 145/81; PULSE 72; RESP 16; TEMP 97.9
--- NOTE | 2023-11-14 11:01 | P.PN ---
Subjective Progress Note Date: 11/14/23 Principal diagnosis: fibrocystic breast disease/ duct ectasia 11-14-23 fibrocystic breast changes duct ectasia right breast 12-08-21 Lilia is a 56-year-old white female who was seen in consultation for Dr. Wolfe regarding bloody nipple discharge from her right breast. She underwent a bilateral mammogram on which was benign BIRADS 2. She then underwent a right breast mammogram and which did not show any discrete abnormality. This was followed by an ultrasound which revealed some duct ectasia. This had been for about 6 weeks. It appeared to be from an isolated area. She noted the blood in her bra. It was spontaneous. She did not have anything like that on the left side. She had intermittent burning sensation in the right breast. She had no history of any recent trauma or infection in the breast. On 06-06-21 she underwent a right breast duct exploration. This revealed benign mammary duct ectasia. The patient underwent a bilateral mammogram on . This resulted in an ultrasound of the right breast. This was repeated on the same day and the ultrasound revealed a 0.9 x 0.6 cm lesion at 10:00. This seemed to be a cystic cluster embedded in the longer patch of dense tissue. Six-month follow-up diagnostic mammogram of the right breast in 6 months was recommended. She has not noted any lumps masses or nudules in either breast of concern. She does not have any more nipple discharge on either side. The bloody nipple discharge on the right side as stopped since her right breast duct exploration. 06-14-22 Repeat right breast mammogram in [id number]. This led to the right breast ultrasound on the same date. This was a targeted ultrasound of the upper outer quadrant 9 to 12:00 including the subareolar region and axilla. A patch of dense tissue at 10 o'clock position was noted but no suspicious solid or cystic lesions. This was overall benign BIRADS 2. Not complaining of any lumps masses or nodules of concern in either breast at this time. Bilateral mammogram in 6 months was recommended. 11-30-22 Bilateral mammogram on 11-06-22 BIRAD 2; the patient complains of some tenderness and nodularity at the upper inner aspect of the left breast. She states it has been intermittently present for several months but has been more persistent recently. She is not complaining of any nipple discharge or skin changes. 12-13-22 Results of ultrasound of the left breast reviewed. BIRAD 2. 11-16-23 BIlateral mammogram 11-08-23 BIRAD 2 The patient is not complaining of any new lumps masses or nodules of concern in either breast. She is not having any nipple discharge. Maxine Risk 2% patient declined chemoprevention Caffeine:1 pop/day in the past, no caffeine at this time nicotine: none chocolate: occasional Family History: maternal aunt: breast mother: colon pre-cancer maternal aunt: thyroid cancer Hormonal History: menarche: 10 , age at first : 24, breast fed: yes menopause: hysterectomy at 34, left ovaries not for cancer BCP: about 3 years hormones: none Surgical History: Hysterectomy Right knee surgery 4 surgeries carpel tunnel gallbaldder D&C laproscopic exam right breast duct exploration Medical History: Multiple Sclerosis (treatment with lemtrada to wipe out immune system; through Dr. Austin office in remission) HTN Social History: smoke: stopped 40 years ago alcohol: seldom drugs: none - Constitutional Constitutional: Reports sweats - EENT Eyes: denies blurred vision, denies pain Ears: deny: decreased hearing, tinnitus Ears, nose, mouth and throat: Denies headache, Denies sore throat - Breasts Breasts: bilateral: as per HPI - Cardiovascular Cardiovascular: Denies chest pain, Denies shortness of breath - Respiratory Respiratory: Denies cough - Gastrointestinal Gastrointestinal: Denies abdominal pain, Denies diarrhea, Denies nausea, Denies vomiting - Genitourinary (Female) Genitourinary: Denies dysuria, Denies hematuria - Menstruation Menstruation: Reports post hysterectomy - Musculoskeletal Comment: multiple sclerosis difficulty with walking Musculoskeletal: Denies myalgias - Integumentary Integumentary: Denies pruritus, Denies rash - Neurological Comment: multiple sclerosis - Psychiatric Psychiatric: Denies anxiety, Denies depression - Endocrine Endocrine: Denies fatigue, Denies weight change - Hematologic/Lymphatic Comment: none - Allergic/Immunologic Allergic/Immunologic: Reports as per HPI Objective - Constitutional General appearance: Present: cooperative - EENT Eyes: Present: EOMI ENT: Present: hearing grossly normal - Neck Neck: Present: normal ROM - Respiratory Respiratory: bilateral: CTA - Cardiovascular Heart sounds: normal: S1, S2 - Integumentary Integumentary: Present: normal turgor - Musculoskeletal Musculoskeletal: Present: gait normal - Psychiatric Psychiatric: Present: A&O x's 3, appropriate affect, intact judgment & insight - Additional findings Additional findings: Breast Exam: BRA: 38C Inspection: Grade 2/3 ptosis Palpation: Right Breast: Multi positional exam fibrocystic changes, well-healed scar from prior surgery, no dominate masses or nodules of concern Right axilla: No adenopathy of concern Left breast: Multi positional exam fibrocystic changes no dominant masses or nodules of concern Left axilla: No adenopathy of concern Assessment and Plan Assessment: Impression: Fibrocystic breast changes Bilateral mammogram 3-24 benign BIRADS 2 Plan: Bilateral mammogram 1 year with physician exam at that time Patient will follow up sooner any questions or concerns CC: Dr. Wolfe
== END ==
LOC: WWCWWP 10:37
PROVIDERS: ATTEND Surgery
DX: R92.8 Other abnormal and inconclusive findings on diagnostic imaging of breast (principal); N60.41 Mammary duct ectasia of right breast; N60.42 Mammary duct ectasia of left breast; N60.11 Diffuse cystic mastopathy of right breast; N60.12 Diffuse cystic mastopathy of left breast; Z88.7 Allergy status to serum and vaccine; Z88.5 Allergy status to narcotic agent

== ENCOUNTER → 2024-11-09 | Outpatient (CLI) | payer MEDICARE, BC ==
--- NOTE | 2024-11-09 09:16 | MM ---
Reason for Exam: Screening (asymptomatic). Last screening mammogram was performed 12 month(s) ago. Patient History: Menarche at age 9. First Full-Term at age 24. Hysterectomy at age 33. Postmenopausal. 06/06/2021, Lumpectomy on the Right side. 06/06/2021, Benign Core Biopsy on the right side. Maternal aunt had breast cancer, age 40. Risk Values: Maxine 5 year model risk: 2.1%. NCI Lifetime model risk: 10.4%. Prior Study Comparison: 06/07/2022 Right MG 3D diag mammo w/cad RT, [facility]. 11/06/2022 Bilateral MG 3D screening mammo w/cad, [facility]. 11/08/2023 Bilateral MG 3D screening mammo w/cad, [facility]. Tissue Density: The breasts are heterogeneously dense, which may obscure small masses. Findings: Analyzed By CAD. Surgical changes to the right breast are redemonstrated. There is no suspicious new group of microcalcifications or new suspicious mass in either breast. Overall Assessment: Benign, BI-RAD 2 Management: Screening Mammogram of both breasts in 1 year. . Patient should continue monthly self-breast exams. A clinical breast exam by your physician is recommended on an annual basis. This exam should not preclude additional follow-up of suspicious palpable abnormalities. Note on Maxine scores and lifetime risk: 1. A Maxine score greater than 3% is considered moderate risk. If this is the case, consider specialist referral to assess eligibility for a risk reducing agent. 2. If overall lifetime risk for the development of breast cancer is 20% or higher, the patient may qualify for future screening with alternating mammogram and breast MRI. [facility], , 11/09/2024 9:13 AM. Electronically signed and approved by: Teddy Pedroza M.D.
== END | disposition home or self-care (01) ==
LOC: RADMAMWWP 09:01
PROVIDERS: ATTEND Surgery
DX: Z12.31 Encounter for screening mammogram for malignant neoplasm of breast (principal); R92.333 Mammographic heterogeneous density, bilateral breasts; Z78.0 Asymptomatic menopausal state; Z80.3 Family history of malignant neoplasm of breast
CPT/HCPCS: 77063; 77067

== ENCOUNTER → 2024-11-13 | Outpatient (CLI) | payer MEDICARE, BC ==
[2024-11-13 10:18] VITALS: BP 162/87; PULSE 85; RESP 17; TEMP 97.9
--- NOTE | 2024-11-13 10:44 | P.PN ---
Subjective Progress Note Date: 11/13/24 Principal diagnosis: fibrocystic breast disease 11/14/23 Principal diagnosis: fibrocystic breast disease/ duct ectasia 11-14-23 fibrocystic breast changes duct ectasia right breast 12-08-21 Lilia is a 56-year-old white female who was seen in consultation for Dr. Wolfe regarding bloody nipple discharge from her right breast. She underwent a bilateral mammogram on which was benign BIRADS 2. She then underwent a right breast mammogram and which did not show any discrete abnormality. This was followed by an ultrasound which revealed some duct ectasia. This had been for about 6 weeks. It appeared to be from an isolated area. She noted the blood in her bra. It was spontaneous. She did not have anything like that on the left side. She had intermittent burning sensation in the right breast. She had no history of any recent trauma or infection in the breast. On 06-06-21 she underwent a right breast duct exploration. This revealed benign mammary duct ectasia. The patient underwent a bilateral mammogram on . This resulted in an ultrasound of the right breast. This was repeated on the same day and the ultrasound revealed a 0.9 x 0.6 cm lesion at 10:00. This seemed to be a cystic cluster embedded in the longer patch of dense tissue. Six-month follow-up diagnostic mammogram of the right breast in 6 months was recommended. She has not noted any lumps masses or nudules in either breast of concern. She does not have any more nipple discharge on either side. The bloody nipple discharge on the right side as stopped since her right breast duct exploration. 06-14-22 Repeat right breast mammogram in [id number]. This led to the right breast ultrasound on the same date. This was a targeted ultrasound of the upper outer quadrant 9 to 12:00 including the subareolar region and axilla. A patch of dense tissue at 10 o'clock position was noted but no suspicious solid or cystic lesions. This was overall benign BIRADS 2. Not complaining of any lumps masses or nodules of concern in either breast at this time. Bilateral mammogram in 6 months was recommended. 11-30-22 Bilateral mammogram on 11-06-22 BIRAD 2; the patient complains of some tenderness and nodularity at the upper inner aspect of the left breast. She states it has been intermittently present for several months but has been more persistent recently. She is not complaining of any nipple discharge or skin changes. 12-13-22 Results of ultrasound of the left breast reviewed. BIRAD 2. 11-16-23 BIlateral mammogram 11-08-23 BIRAD 2 The patient is not complaining of any new lumps masses or nodules of concern in either breast. She is not having any nipple discharge. 11-13-24 Lilia is a 59 year old female status post right breast duct exploration for bloody nipple discharge in 2020. Her pathology was benign, and this has not r ecurred. bilateral mammogram on 11-09-24 personally reviewed and interpreted BIRAD 2 She is not complaining of any lumps, masses or nodules in either breast, she does complain of intermittent burning in the right breast it only lasts for a few seconds it does not spread any place else Nothing seems to precipitate this. Maxine Risk 2.1% patient declined chemoprevention Caffeine:1 pop/day in the past, no caffeine at this time nicotine: none chocolate: occasional Family History: maternal aunt: breast mother: colon pre-cancer maternal aunt: thyroid cancer Hormonal History: menarche: 10 , age at first : 24, breast fed: yes menopause: hysterectomy at 34, left ovaries not for cancer BCP: about 3 years hormones: none Surgical History: Hysterectomy Right knee surgery 4 surgeries carpel tunnel gallbaldder D&C laproscopic exam right breast duct exploration Medical History: Multiple Sclerosis (treatment with lemtrada to wipe out immune system; through Dr. Austin office in remission) HTN Social History: smoke: stopped 40 years ago alcohol: seldom drugs: none - Constitutional Constitutional: Reports sweats - EENT Eyes: denies blurred vision, denies pain Ears: deny: decreased hearing, tinnitus Ears, nose, mouth and throat: Denies headache, Denies sore throat - Breasts Breasts: bilateral: as per HPI - Cardiovascular Cardiovascular: Denies chest pain, Denies shortness of breath - Respiratory Respiratory: Denies cough - Gastrointestinal Gastrointestinal: Denies abdominal pain, Denies diarrhea, Denies nausea, Denies vomiting - Genitourinary (Female) Genitourinary: Denies dysuria, Denies hematuria - Menstruation Menstruation: Reports post hysterectomy - Musculoskeletal Comment: multiple sclerosis difficulty with walking Musculoskeletal: Denies myalgias - Integumentary Integumentary: Denies pruritus, Denies rash - Neurological Comment: multiple sclerosis - Psychiatric Psychiatric: Denies anxiety, Denies depression - Endocrine Endocrine: Denies fatigue, Denies weight change - Hematologic/Lymphatic Comment: none - Allergic/Immunologic Allergic/Immunologic: Reports as per HPI Objective - Vital Signs Vital signs: Vital Signs Temp 97.9 F 11/13/24 10:16 Pulse 85 11/13/24 10:16 Resp 17 11/13/24 10:16 BP 162/87 11/13/24 10:16 Pulse Ox 97 11/13/24 10:16 FiO2 Intake & Output 11/12/24 11/13/24 11/13/24 18:59 06:59 18:59 Weight 78.018 kg - Constitutional General appearance: Present: cooperative - EENT Eyes: Present: EOMI ENT: Present: hearing grossly normal - Neck Neck: Present: normal ROM - Respiratory Respiratory: bilateral: CTA - Cardiovascular Rhythm: regular Heart sounds: normal: S1, S2 - Integumentary Integumentary: Present: normal turgor - Musculoskeletal Musculoskeletal: Present: gait normal - Psychiatric Psychiatric: Present: A&O x's 3, appropriate affect, intact judgment & insight - Additional findings Additional findings: Breast Exam: BRA: 38C Inspection: Grade 2/3 ptosis Palpation: Right Breast: Multi positional exam fibrocystic changes, well-healed scar from prior surgery, no dominate masses or nodules of concern Right axilla: No adenopathy of concern Left breast: Multi positional exam fibrocystic changes no dominant masses or nodules of concern Left axilla: No adenopathy of concern Assessment and Plan Assessment: Impression: Fibrocystic breast changes Bilateral mammogram 11-09-24 benign BIRADS 2 Plan: Bilateral mammogram 1 year October 2025 with physician exam at that time Patient will follow up sooner any questions or concerns CC: Dr. Wolfe
== END ==
LOC: WWCWWP 09:52
PROVIDERS: ATTEND Surgery
DX: N60.11 Diffuse cystic mastopathy of right breast (principal); N60.12 Diffuse cystic mastopathy of left breast; Z80.3 Family history of malignant neoplasm of breast; Z88.7 Allergy status to serum and vaccine; Z88.5 Allergy status to narcotic agent